=== PATIENT | male | born 1955 | race African-American/Black ===

== ENCOUNTER 2022-10-26 09:04 | Inpatient (IN) | payer MEDICAID, OTHER ==
[~2022-10-26] VITALS: Ht 177.8 cm; Wt 77.3 kg
[2022-10-26 10:21] LABS: Basophils # (auto) 0 10 ^3/uL (0-0.2); Basophils % (auto) 0.7 % (0.0-2.0); Eosinophils # (auto) 0.8 10 ^3/uL (0-0.8); Eosinophils % (auto) 10.5 % (0.0-7.0); Hemoglobin 9.4 g/dL (13.5-17.5); Lymphocytes # (auto) 2.3 10 ^3/uL (0.4-5.4); Lymphocytes % (auto) 31.6 % (10.0-50.0); Mean Corpuscular Hemoglobin 28.9 pg (28.0-32.0); Mean Corpuscular Hgb Conc. 32.4 g/dL (32.0-36.0); Mean Corpuscular Volume 89.3 fL (80.0-100.0); Monocytes # (auto) 0.6 10 ^3/uL (0-1.3); Monocytes % (auto) 8.8 % (0.0-12.0); Neutrophils # (auto) 3.5 10 ^3/uL (1.6-8.6); Neutrophils % (auto) 48.4 % (37.0-80.0); Nucleated Red Blood Cells % 0.1 %; Red Blood Cells 3.24 10^6/uL (4.5-5.90); Red Cell Distribution Width 16.6 % (11.8-14.3); White Blood Cell 7.3 10^3/uL (4.4-10.8)
[2022-10-26 10:29] LABS: Albumin 3.5 g/dL (3.4-5.0); Calcium 8.6 mg/dL (8.5-10.1); Potassium 4.7 mmol/L (3.5-5.1)
[2022-10-26 10:34] LABS: BUN/Creatinine Ratio 6.7 (10.0-20.0); Bilirubin, Total 0.4 mg/dL (0.2-1.0); Total Protein 7.4 g/dL (6.4-8.2)
[2022-10-26 11:39] LABS: INR 1.05 (0.9-1.15); Partial Thromboplastin Time 31.9 SEC (24.5-34.5)
[2022-10-26 13:07] VITALS: PULSE 63; RESP 18; O2SAT 97
[2022-10-26] MEDS ORDERED: ALBUMIN 25% 100 ML IV PRN ×2 (16:30→19:00)
[2022-10-26] MEDS: SODIUM CHL 0.9% 1000 ML BAG XX ONE ×2 (18:08→22:45)
[2022-10-26 19:30] VITALS: PULSE 81; RESP 15; O2SAT 97
[2022-10-26] MEDS ORDERED: ACETAMINOPHEN 325 MG TAB PO PRN (20:00)
[2022-10-26] MEDS ORDERED: EPOETIN ALFA-EPBX 10,000 UNIT/1ML VIAL SC ONE (21:00)
[2022-10-26 21:11] LABS: Urine Bacteria FEW /hpf (None Seen); Urine Blood TRACE /uL (Negative); Urine Clarity Clear (Clear); Urine Color Colorless (Yellow); Urine Mucus FEW (None Seen); Urine Protein, UAD 1+ (Negative); Urine Specific Gravity 1.008 (1.001-1.035); Urine Urobilinogen Normal (Negative); Urine WBC 21 /hpf (0 - 3)
[2022-10-26] MEDS: HEPARIN SODIUM (PORCINE) 5000 UNITS/ML 1ML VIAL SC SCH (22:18)
[2022-10-26] MEDS: ALBUMIN 25% 100 ML IV PRN ×2 (22:49→22:53)
[2022-10-26 23:58] VITALS: PULSE 98; RESP 18; O2SAT 96
[2022-10-27] VITALS (8 sets, daily range): BP systolic 124–180; BP diastolic 64–78; PULSE 71–98; RESP 16–18; TEMP 97.9–99.5; O2SAT 96–99
[2022-10-27] MEDS ORDERED: LOSA100T58 PO (00:25)
[2022-10-27] MEDS ORDERED: FURO40TA4 PO (00:25)
[2022-10-27] MEDS ORDERED: NIFE1TAB31 PO (00:25)
[2022-10-27] MEDS ORDERED: ASPI1TAB20 PO (00:25)
[2022-10-27] MEDS ORDERED: METO-289 PO (00:25)
[2022-10-27] MEDS ORDERED: ALLO300T2 PO (00:25)
[2022-10-27 06:50] LABS: Basophils # (auto) 0.1 10 ^3/uL (0-0.2); Basophils % (auto) 0.5 % (0.0-2.0); Eosinophils # (auto) 0.4 10 ^3/uL (0-0.8); Hematocrit 27.9 % (41.0-53.0); Lymphocytes # (auto) 1.6 10 ^3/uL (0.4-5.4); Lymphocytes % (auto) 13.7 % (10.0-50.0); Mean Corpuscular Hemoglobin 28.7 pg (28.0-32.0); Mean Corpuscular Hgb Conc. 32.3 g/dL (32.0-36.0); Mean Corpuscular Volume 88.9 fL (80.0-100.0); Monocytes # (auto) 0.7 10 ^3/uL (0-1.3); Neutrophils # (auto) 9.1 10 ^3/uL (1.6-8.6); Neutrophils % (auto) 76.8 % (37.0-80.0); Nucleated Red Blood Cells % 0.1 %; Red Blood Cells 3.14 10^6/uL (4.5-5.90); Red Cell Distribution Width 16.3 % (11.8-14.3); White Blood Cell 11.8 10^3/uL (4.4-10.8)
[2022-10-27] MEDS ORDERED: SODIUM CHL 0.9% 1000 ML BAG XX ONE (07:00)
[2022-10-27 07:10] LABS: Albumin 3.7 g/dL (3.4-5.0); Calcium 8.9 mg/dL (8.5-10.1); Potassium 4.6 mmol/L (3.5-5.1)
[2022-10-27 07:15] LABS: % Iron Saturation 20.8 % (20-55); BUN/Creatinine Ratio 5.3 (10.0-20.0); Bilirubin, Total 0.6 mg/dL (0.2-1.0); Phosphorus 2.4 mg/dL (2.5-4.90); Total Protein 7.2 g/dL (6.4-8.2)
[2022-10-27] MEDS ORDERED: SEVELAMER 800 MG TAB PO SCH (08:00)
[2022-10-27] MEDS: SODIUM FERR GLUC 62.5MG/5ML 125 MG in SODIUM CHL 0.9% 100 ML IV SCH (14:42)
[2022-10-27] MEDS: LOSARTAN POTASSIUM 50 MG TAB PO SCH (14:43)
[2022-10-27] MEDS: HEPARIN SODIUM (PORCINE) 5000 UNITS/ML 1ML VIAL SC SCH ×2 (14:51→22:03)
[2022-10-27 19:23] LABS: Cholesterol 160 mg/dL (< 200); Triglycerides 70 mg/dL (< 150)
[2022-10-27 19:26] LABS: HDL Cholesterol 58 mg/dL (40-59); LDL Cholesterol 83 mg/dL (< 100)
[2022-10-27] MEDS ORDERED: EPOETIN ALFA-EPBX 10,000 UNIT/1ML VIAL SC ONE (21:00)
[2022-10-27] MEDS: METOPROLOL TARTRATE 50 MG TAB PO SCH (22:00)
[2022-10-28] VITALS (7 sets, daily range): BP systolic 113–144; BP diastolic 63–84; PULSE 58–70; RESP 16–18; TEMP 98.1–98.7; O2SAT 91–99
[2022-10-28 05:59] LABS: Basophils # (auto) 0 10 ^3/uL (0-0.2); Basophils % (auto) 0.4 % (0.0-2.0); Eosinophils # (auto) 0.8 10 ^3/uL (0-0.8); Hematocrit 30.4 % (41.0-53.0); Hemoglobin 9.9 g/dL (13.5-17.5); Lymphocytes # (auto) 2.8 10 ^3/uL (0.4-5.4); Lymphocytes % (auto) 35.9 % (10.0-50.0); Mean Corpuscular Hemoglobin 28.9 pg (28.0-32.0); Mean Corpuscular Hgb Conc. 32.7 g/dL (32.0-36.0); Mean Corpuscular Volume 88.4 fL (80.0-100.0); Monocytes # (auto) 0.8 10 ^3/uL (0-1.3); Monocytes % (auto) 9.6 % (0.0-12.0); Neutrophils # (auto) 3.5 10 ^3/uL (1.6-8.6); Neutrophils % (auto) 44.1 % (37.0-80.0); Red Blood Cells 3.44 10^6/uL (4.5-5.90); Red Cell Distribution Width 16.2 % (11.8-14.3); White Blood Cell 7.9 10^3/uL (4.4-10.8)
[2022-10-28 06:07] LABS: Potassium 4.4 mmol/L (3.5-5.1)
[2022-10-28 06:11] LABS: BUN/Creatinine Ratio 6.1 (10.0-20.0); Calcium 8.9 mg/dL (8.5-10.1)
[2022-10-28 07:44] LABS: Platelet Estimate Decreased
[2022-10-28] MEDS: cefTRIAXone 1GM/50ML D5W 50 ML IV SCH (09:45)
[2022-10-28] MEDS: ASPirin-EC 81 mg tab PO SCH (09:45)
[2022-10-28] MEDS: LOSARTAN POTASSIUM 50 MG TAB PO SCH (09:46)
[2022-10-28] MEDS: METOPROLOL TARTRATE 50 MG TAB PO SCH ×2 (09:47→21:59)
[2022-10-28] MEDS: HEPARIN SODIUM (PORCINE) 5000 UNITS/ML 1ML VIAL SC SCH ×2 (10:02→21:59)
[2022-10-28] MEDS: NIFEdipine ER 30 MG TAB PO SCH (10:02)
[2022-10-28] MEDS: SODIUM FERR GLUC 62.5MG/5ML 125 MG in SODIUM CHL 0.9% 100 ML IV SCH (12:00)
[2022-10-28 12:33] LABS: Hepatitis A Ab IgM Negative
[2022-10-28 12:34] LABS: Hepatitis B Core IgM Negative; Hepatitis B Surface Antigen Negative (Negative)
[2022-10-28 12:35] LABS: Hepatitis C Antibody Negative (Negative)
[2022-10-28] MEDS: FUROSEMIDE 40 MG TAB PO SCH ×2 (15:23→21:51)
[2022-10-28] MEDS: ATORVASTATIN 20 MG TAB PO SCH (21:51)
[2022-10-29] VITALS (7 sets, daily range): BP systolic 108–138; BP diastolic 61–73; PULSE 70–78; RESP 15–18; TEMP 97.6–98.5; O2SAT 95–99
[2022-10-29] MEDS: FUROSEMIDE 40 MG TAB PO SCH ×3 (05:56→21:15)
[2022-10-29 06:07] LABS: PSA Free 4.86 ng/mL; Prostate Specific Antigen 23.9 ng/mL (0.0-4.0)
[2022-10-29 06:34] LABS: Basophils # (auto) 0 10 ^3/uL (0-0.2); Basophils % (auto) 0.4 % (0.0-2.0); Eosinophils % (auto) 12.6 % (0.0-7.0); Hematocrit 31.1 % (41.0-53.0); Hemoglobin 10.1 g/dL (13.5-17.5); Lymphocytes # (auto) 2.4 10 ^3/uL (0.4-5.4); Lymphocytes % (auto) 29.7 % (10.0-50.0); Mean Corpuscular Hemoglobin 28.9 pg (28.0-32.0); Mean Corpuscular Hgb Conc. 32.7 g/dL (32.0-36.0); Mean Corpuscular Volume 88.5 fL (80.0-100.0); Monocytes # (auto) 0.8 10 ^3/uL (0-1.3); Monocytes % (auto) 9.4 % (0.0-12.0); Neutrophils # (auto) 3.9 10 ^3/uL (1.6-8.6); Neutrophils % (auto) 47.9 % (37.0-80.0); Nucleated Red Blood Cells % 0.1 %; Red Blood Cells 3.51 10^6/uL (4.5-5.90); Red Cell Distribution Width 16.2 % (11.8-14.3); White Blood Cell 8.2 10^3/uL (4.4-10.8)
[2022-10-29 06:49] LABS: Calcium 9.2 mg/dL (8.5-10.1); Potassium 4.9 mmol/L (3.5-5.1)
[2022-10-29 06:51] LABS: BUN/Creatinine Ratio 6.3 (10.0-20.0)
[2022-10-29] MEDS ORDERED: SODIUM CHL 0.9% 1000 ML BAG XX ONE (07:00)
[2022-10-29] MEDS: HEPARIN SODIUM (PORCINE) 5000 UNITS/ML 1ML VIAL SC SCH (10:00)
[2022-10-29] MEDS: NIFEdipine ER 30 MG TAB PO SCH (11:13)
[2022-10-29] MEDS: cefTRIAXone 1GM/50ML D5W 50 ML IV SCH (11:13)
[2022-10-29] MEDS: ASPirin-EC 81 mg tab PO SCH (11:14)
[2022-10-29] MEDS: METOPROLOL TARTRATE 50 MG TAB PO SCH ×2 (11:14→21:15)
[2022-10-29] MEDS: SODIUM FERR GLUC 62.5MG/5ML 125 MG in SODIUM CHL 0.9% 100 ML IV SCH (12:41)
[2022-10-29] MEDS ORDERED: EPOETIN ALFA-EPBX 10,000 UNIT/1ML VIAL SC ONE (21:00)
[2022-10-29] MEDS: ATORVASTATIN 20 MG TAB PO SCH (21:15)
[2022-10-29 22:29] LABS: Potassium 4.2 mmol/L (3.5-5.1)
[2022-10-30] VITALS (7 sets, daily range): BP systolic 129–167; BP diastolic 49–81; PULSE 51–72; RESP 17–18; TEMP 36.6; O2SAT 95–100
[2022-10-30] MEDS: FUROSEMIDE 40 MG TAB PO SCH ×3 (05:53→22:17)
[2022-10-30 06:27] LABS: Basophils # (auto) 0.1 10 ^3/uL (0-0.2); Basophils % (auto) 0.6 % (0.0-2.0); Eosinophils # (auto) 1.1 10 ^3/uL (0-0.8); Eosinophils % (auto) 11.9 % (0.0-7.0); Hematocrit 30.6 % (41.0-53.0); Hemoglobin 9.9 g/dL (13.5-17.5); Lymphocytes # (auto) 2.2 10 ^3/uL (0.4-5.4); Lymphocytes % (auto) 23.7 % (10.0-50.0); Mean Corpuscular Hemoglobin 28.3 pg (28.0-32.0); Mean Corpuscular Hgb Conc. 32.2 g/dL (32.0-36.0); Mean Corpuscular Volume 88.1 fL (80.0-100.0); Monocytes # (auto) 0.8 10 ^3/uL (0-1.3); Neutrophils # (auto) 5.1 10 ^3/uL (1.6-8.6); Neutrophils % (auto) 54.8 % (37.0-80.0); Nucleated Red Blood Cells % 0.1 %; Red Blood Cells 3.48 10^6/uL (4.5-5.90); White Blood Cell 9.4 10^3/uL (4.4-10.8)
[2022-10-30 06:44] LABS: Potassium 4.6 mmol/L (3.5-5.1)
[2022-10-30 06:47] LABS: BUN/Creatinine Ratio 6.2 (10.0-20.0)
[2022-10-30] MEDS: cefTRIAXone 1GM/50ML D5W 50 ML IV SCH (09:25)
[2022-10-30] MEDS: NIFEdipine ER 30 MG TAB PO SCH (09:26)
[2022-10-30] MEDS: METOPROLOL TARTRATE 50 MG TAB PO SCH ×2 (09:26→22:17)
[2022-10-30] MEDS: LOSARTAN POTASSIUM 50 MG TAB PO SCH (09:27)
[2022-10-30 10:42] LABS: Potassium 4.7 mmol/L (3.5-5.1)
[2022-10-30] MEDS: SODIUM FERR GLUC 62.5MG/5ML 125 MG in SODIUM CHL 0.9% 100 ML IV SCH (12:00)
[2022-10-30] MEDS ORDERED: MEROPENEM 1GM IVPB 100 ML IV SCH (14:00)
[2022-10-30] MEDS: ERTAPENEM SOD INJ 0.5 GM in SODIUM CHL 0.9% 50 ML IV SCH (14:37)
[2022-10-30] MEDS: ATORVASTATIN 20 MG TAB PO SCH (22:18)
[2022-10-30 22:29] LABS: Potassium 4.6 mmol/L (3.5-5.1)
[2022-10-31 05:00] VITALS: BP 152/75; PULSE 79; RESP 18; TEMP 98; O2SAT 100
[2022-10-31] MEDS: FUROSEMIDE 40 MG TAB PO SCH ×3 (06:48→21:53)
[2022-10-31 09:00] VITALS: BP 167/68; PULSE 65; RESP 21; TEMP 97.5; O2SAT 96
[2022-10-31] MEDS: ERTAPENEM SOD INJ 0.5 GM in SODIUM CHL 0.9% 50 ML IV SCH (10:05)
[2022-10-31] MEDS: METOPROLOL TARTRATE 50 MG TAB PO SCH ×2 (10:05→21:54)
[2022-10-31] MEDS: NIFEdipine ER 30 MG TAB PO SCH (10:05)
[2022-10-31] MEDS: LOSARTAN POTASSIUM 50 MG TAB PO SCH (10:06)
[2022-10-31 10:41] LABS: Potassium 4.7 mmol/L (3.5-5.1)
[2022-10-31] MEDS: hydrALAZINE HCL 20 MG/ML VL IV PRN (12:36)
[2022-10-31] MEDS: SODIUM FERR GLUC 62.5MG/5ML 125 MG in SODIUM CHL 0.9% 100 ML IV SCH (12:36)
[2022-10-31 12:50] VITALS: BP 167/67; PULSE 61; RESP 17; TEMP 97.2; O2SAT 97
[2022-10-31 17:00] VITALS: BP 136/61; PULSE 78; RESP 18; TEMP 97.7; O2SAT 96
[2022-10-31] MEDS: ATORVASTATIN 20 MG TAB PO SCH (21:53)
[2022-10-31 22:00] VITALS: BP 138/62; PULSE 78; RESP 17; TEMP 98.4; O2SAT 95
[2022-11-01 05:00] VITALS: BP 167/74; PULSE 77; RESP 18; TEMP 97.2; O2SAT 97
[2022-11-01] MEDS: hydrALAZINE HCL 20 MG/ML VL IV PRN (05:48)
[2022-11-01 05:49] VITALS: BP 151/72; PULSE 71
[2022-11-01] MEDS: FUROSEMIDE 40 MG TAB PO SCH ×3 (05:49→21:53)
[2022-11-01 05:55] LABS: INR 1.07 (0.9-1.15); Partial Thromboplastin Time 34.3 SEC (24.5-34.5); Prothrombin Time 11.2 sec (9.3-11.8)
[2022-11-01 07:43] LABS: Calcium 9.1 mg/dL (8.5-10.1); Potassium 5.4 mmol/L (3.5-5.1)
[2022-11-01 07:46] LABS: BUN/Creatinine Ratio 7.2 (10.0-20.0)
[2022-11-01 07:50] VITALS: BP 123/56; PULSE 70; RESP 18; TEMP 97.7; O2SAT 97
[2022-11-01 07:57] LABS: Basophils # (auto) 0.1 10 ^3/uL (0-0.2); Basophils % (auto) 0.6 % (0.0-2.0); Eosinophils % (auto) 10.4 % (0.0-7.0); Hematocrit 32.4 % (41.0-53.0); Hemoglobin 10.6 g/dL (13.5-17.5); Lymphocytes # (auto) 2.2 10 ^3/uL (0.4-5.4); Lymphocytes % (auto) 22.5 % (10.0-50.0); Mean Corpuscular Hgb Conc. 32.7 g/dL (32.0-36.0); Mean Corpuscular Volume 88.7 fL (80.0-100.0); Monocytes # (auto) 1.1 10 ^3/uL (0-1.3); Monocytes % (auto) 11.2 % (0.0-12.0); Neutrophils # (auto) 5.4 10 ^3/uL (1.6-8.6); Neutrophils % (auto) 55.3 % (37.0-80.0); Nucleated Red Blood Cells % 0.1 %; Red Blood Cells 3.65 10^6/uL (4.5-5.90); Red Cell Distribution Width 16.2 % (11.8-14.3); White Blood Cell 9.7 10^3/uL (4.4-10.8)
[2022-11-01 08:45] VITALS: BP 123/56; PULSE 70; RESP 18; TEMP 97.7; O2SAT 97
[2022-11-01] MEDS: METOPROLOL TARTRATE 50 MG TAB PO SCH ×2 (10:00→21:52)
[2022-11-01] MEDS: LOSARTAN POTASSIUM 50 MG TAB PO SCH (10:00)
[2022-11-01] MEDS: NIFEdipine ER 30 MG TAB PO SCH (10:00)
[2022-11-01] MEDS: ERTAPENEM SOD INJ 0.5 GM in SODIUM CHL 0.9% 50 ML IV SCH (10:21)
[2022-11-01] MEDS ORDERED: SODIUM CHL 0.9% 1000 ML BAG XX ONE (10:45)
[2022-11-01 13:18] VITALS: BP 157/71; PULSE 92; RESP 20; O2SAT 93
[2022-11-01 13:35] LABS: Potassium 3.9 mmol/L (3.5-5.1)
[2022-11-01] MEDS ORDERED: MIDAZOLAM HCL 2MG/2ML 2ml VIAL (1mg/ml) ONE (16:01)
[2022-11-01] MEDS ORDERED: PROPOFOL 10 MG/ML 20 ML IV ONE ×2 (16:01→17:05)
[2022-11-01] MEDS ORDERED: GLYCOPYRROLATE 0.2 MG/ML 1ML VIAL ONE (16:01)
[2022-11-01] MEDS ORDERED: KETAMINE HCL 10 ML ONE (16:01)
[2022-11-01] MEDS ORDERED: ONDANSETRON HCL 4 MG/2 ML VIAL ONE (16:01)
[2022-11-01] MEDS ORDERED: LIDOCAINE 2% (LOCAL ANESTH.) PF 5ml SDV ONE (16:01)
[2022-11-01] MEDS ORDERED: fentaNYL CITRATE 100 MCG/2 ML VL ONE (16:54)
[2022-11-01] MEDS ORDERED: ONDANSETRON HCL 4 MG/2 ML VIAL IV PRN (17:45)
[2022-11-01] MEDS ORDERED: HYDROmorphone HCL 2 MG/ML VL/or syr IV PRN (17:45)
[2022-11-01] MEDS ORDERED: EPOETIN ALFA-EPBX 10,000 UNIT/1ML VIAL SC ONE (21:00)
[2022-11-01] MEDS: ATORVASTATIN 20 MG TAB PO SCH (21:52)
[2022-11-01 22:05] VITALS: BP 98/53; PULSE 94; RESP 18; TEMP 98.7; O2SAT 100
[2022-11-01 22:36] LABS: Potassium 5.1 mmol/L (3.5-5.1)
[2022-11-02] VITALS (7 sets, daily range): BP systolic 94–109; BP diastolic 45–56; PULSE 72–80; RESP 16–22; TEMP 97.2–98.4; O2SAT 93–100
[2022-11-02] MEDS: FUROSEMIDE 40 MG TAB PO SCH ×3 (05:26→22:30)
[2022-11-02 08:08] LABS: Basophils # (auto) 0 10 ^3/uL (0-0.2); Basophils % (auto) 0.4 % (0.0-2.0); Eosinophils # (auto) 0.7 10 ^3/uL (0-0.8); Eosinophils % (auto) 5.7 % (0.0-7.0); Hematocrit 32.9 % (41.0-53.0); Hemoglobin 10.6 g/dL (13.5-17.5); Lymphocytes # (auto) 2.5 10 ^3/uL (0.4-5.4); Lymphocytes % (auto) 21.5 % (10.0-50.0); Mean Corpuscular Hgb Conc. 32.3 g/dL (32.0-36.0); Mean Corpuscular Volume 89.9 fL (80.0-100.0); Monocytes # (auto) 1.1 10 ^3/uL (0-1.3); Monocytes % (auto) 9.2 % (0.0-12.0); Neutrophils # (auto) 7.3 10 ^3/uL (1.6-8.6); Neutrophils % (auto) 63.2 % (37.0-80.0); Nucleated Red Blood Cells % 0.1 %; Red Blood Cells 3.66 10^6/uL (4.5-5.90); Red Cell Distribution Width 16.2 % (11.8-14.3); White Blood Cell 11.5 10^3/uL (4.4-10.8)
[2022-11-02 08:29] LABS: BUN/Creatinine Ratio 5.7 (10.0-20.0); Calcium 9.1 mg/dL (8.5-10.1); Potassium 5.4 mmol/L (3.5-5.1)
[2022-11-02] MEDS: NIFEdipine ER 30 MG TAB PO SCH (10:00)
[2022-11-02] MEDS: LOSARTAN POTASSIUM 50 MG TAB PO SCH (10:49)
[2022-11-02] MEDS: ERTAPENEM SOD INJ 0.5 GM in SODIUM CHL 0.9% 50 ML IV SCH (10:50)
[2022-11-02] MEDS: METOPROLOL TARTRATE 50 MG TAB PO SCH ×2 (10:50→22:30)
[2022-11-02] MEDS ORDERED: DEXTROSE (50%) 50ML SYRG IV ONE (11:30)
[2022-11-02] MEDS ORDERED: InsuLIN REG 1unit/0.01ml Soln (100units/ml) IV ONE (11:30)
[2022-11-02] MEDS: SODIUM ZIRCONIUM CYCL 10 GM PAK PO SCH ×2 (13:28→22:31)
[2022-11-02] MEDS: ATORVASTATIN 20 MG TAB PO SCH (22:30)
[2022-11-03 04:46] VITALS: BP 122/46; PULSE 70; RESP 18; TEMP 98.2; O2SAT 96
[2022-11-03] MEDS: FUROSEMIDE 40 MG TAB PO SCH ×3 (05:02→21:52)
[2022-11-03] MEDS ORDERED: SODIUM CHL 0.9% 1000 ML BAG XX ONE (07:00)
[2022-11-03] MEDS ORDERED: ALBUMIN 25% 100 ML IV ONE (07:30)
[2022-11-03 07:43] LABS: Basophils # (auto) 0.1 10 ^3/uL (0-0.2); Basophils % (auto) 1.5 % (0.0-2.0); Eosinophils # (auto) 0.1 10 ^3/uL (0-0.8); Eosinophils % (auto) 3.1 % (0.0-7.0); Hematocrit 32.9 % (41.0-53.0); Hemoglobin 10.6 g/dL (13.5-17.5); Lymphocytes # (auto) 1.9 10 ^3/uL (0.4-5.4); Lymphocytes % (auto) 43.3 % (10.0-50.0); Mean Corpuscular Hemoglobin 29.1 pg (28.0-32.0); Mean Corpuscular Hgb Conc. 32.1 g/dL (32.0-36.0); Mean Corpuscular Volume 90.6 fL (80.0-100.0); Monocytes # (auto) 0.1 10 ^3/uL (0-1.3); Monocytes % (auto) 1.4 % (0.0-12.0); Neutrophils # (auto) 2.2 10 ^3/uL (1.6-8.6); Neutrophils % (auto) 50.7 % (37.0-80.0); Nucleated Red Blood Cells % 0.1 %; Red Blood Cells 3.63 10^6/uL (4.5-5.90); White Blood Cell 4.3 10^3/uL (4.4-10.8)
[2022-11-03 07:59] LABS: BUN/Creatinine Ratio 6.6 (10.0-20.0); Calcium 8.7 mg/dL (8.5-10.1); Potassium 4.4 mmol/L (3.5-5.1)
[2022-11-03 08:15] VITALS: O2SAT 95
[2022-11-03 08:50] VITALS: BP 115/55; PULSE 70; RESP 21; TEMP 98; O2SAT 100
[2022-11-03] MEDS: METOPROLOL TARTRATE 50 MG TAB PO SCH ×2 (10:00→21:52)
[2022-11-03] MEDS: NIFEdipine ER 30 MG TAB PO SCH (10:00)
[2022-11-03] MEDS: SODIUM ZIRCONIUM CYCL 10 GM PAK PO SCH (11:16)
[2022-11-03] MEDS: ERTAPENEM SOD INJ 0.5 GM in SODIUM CHL 0.9% 50 ML IV SCH (11:27)
[2022-11-03 12:39] VITALS: BP 108/54; PULSE 98; RESP 21; TEMP 97.4; O2SAT 100
[2022-11-03 16:31] VITALS: BP 100/58; PULSE 95; RESP 21; TEMP 98; O2SAT 100
[2022-11-03] MEDS ORDERED: EPOETIN ALFA-EPBX 10,000 UNIT/1ML VIAL SC ONE (21:00)
[2022-11-03] MEDS: ATORVASTATIN 20 MG TAB PO SCH (21:51)
[2022-11-03 22:04] VITALS: BP 117/50; PULSE 89; RESP 20; TEMP 97.6; O2SAT 95
[2022-11-04] MEDS: FUROSEMIDE 40 MG TAB PO SCH ×3 (05:09→21:32)
[2022-11-04 06:59] LABS: Calcium 8.6 mg/dL (8.5-10.1); Potassium 5.2 mmol/L (3.5-5.1)
[2022-11-04 07:00] LABS: Basophils # (auto) 0.1 10 ^3/uL (0-0.2); Hemoglobin 9.5 g/dL (13.5-17.5); Monocytes % (auto) 11.8 % (0.0-12.0); Nucleated Red Blood Cells % 0.1 %
[2022-11-04 07:03] LABS: Basophils % (auto) 0.5 % (0.0-2.0); Eosinophils # (auto) 0.9 10 ^3/uL (0-0.8); Eosinophils % (auto) 9.7 % (0.0-7.0); Lymphocytes # (auto) 2.5 10 ^3/uL (0.4-5.4); Lymphocytes % (auto) 26.1 % (10.0-50.0); Mean Corpuscular Hemoglobin 29.2 pg (28.0-32.0); Mean Corpuscular Hgb Conc. 32.8 g/dL (32.0-36.0); Mean Corpuscular Volume 89.1 fL (80.0-100.0); Monocytes # (auto) 1.1 10 ^3/uL (0-1.3); Neutrophils # (auto) 5.1 10 ^3/uL (1.6-8.6); Neutrophils % (auto) 51.9 % (37.0-80.0); Red Blood Cells 3.25 10^6/uL (4.5-5.90); Red Cell Distribution Width 16.4 % (11.8-14.3); White Blood Cell 9.7 10^3/uL (4.4-10.8)
[2022-11-04 08:15] VITALS: O2SAT 95
[2022-11-04 08:42] VITALS: BP 123/60; PULSE 72; RESP 16; TEMP 98.4; O2SAT 94
[2022-11-04] MEDS: NIFEdipine ER 30 MG TAB PO SCH (08:50)
[2022-11-04] MEDS: METOPROLOL TARTRATE 50 MG TAB PO SCH ×2 (08:51→21:33)
[2022-11-04] MEDS: LOSARTAN POTASSIUM 50 MG TAB PO SCH (08:51)
[2022-11-04] MEDS: ERTAPENEM SOD INJ 0.5 GM in SODIUM CHL 0.9% 50 ML IV SCH (08:52)
[2022-11-04 09:12] LABS: Platelet Estimate Decreased
[2022-11-04] MEDS ORDERED: SODIUM ZIRCONIUM CYCL 10 GM PAK PO ONE (10:15)
[2022-11-04 12:53] VITALS: BP 120/46; PULSE 62; RESP 15; TEMP 98; O2SAT 95
[2022-11-04 16:37] VITALS: BP 112/60; PULSE 72; RESP 15; TEMP 98.4; O2SAT 92
[2022-11-04] MEDS: ATORVASTATIN 20 MG TAB PO SCH (21:32)
[2022-11-04 22:00] VITALS: BP 107/53; PULSE 74; RESP 16; TEMP 97.8; O2SAT 96
[2022-11-05 04:42] VITALS: BP_SYST 120; BP_SYST 134; BP_DIAS 53; BP_DIAS 82; PULSE 77; PULSE 82; RESP 15; RESP 18; TEMP 97.6; TEMP 97.8; O2SAT 100; O2SAT 97
[2022-11-05 05:43] LABS: Basophils # (auto) 0 10 ^3/uL (0-0.2); Basophils % (auto) 0.6 % (0.0-2.0); Eosinophils # (auto) 1.1 10 ^3/uL (0-0.8); Eosinophils % (auto) 11.9 % (0.0-7.0); Hematocrit 29.6 % (41.0-53.0); Hemoglobin 9.7 g/dL (13.5-17.5); Lymphocytes # (auto) 2.6 10 ^3/uL (0.4-5.4); Lymphocytes % (auto) 29.7 % (10.0-50.0); Mean Corpuscular Hemoglobin 28.9 pg (28.0-32.0); Mean Corpuscular Hgb Conc. 32.7 g/dL (32.0-36.0); Mean Corpuscular Volume 88.3 fL (80.0-100.0); Monocytes # (auto) 0.9 10 ^3/uL (0-1.3); Monocytes % (auto) 10.6 % (0.0-12.0); Neutrophils # (auto) 4.2 10 ^3/uL (1.6-8.6); Neutrophils % (auto) 47.2 % (37.0-80.0); Red Blood Cells 3.36 10^6/uL (4.5-5.90); Red Cell Distribution Width 16.4 % (11.8-14.3); White Blood Cell 8.9 10^3/uL (4.4-10.8)
[2022-11-05] MEDS: FUROSEMIDE 40 MG TAB PO SCH ×3 (06:00→22:07)
[2022-11-05 06:06] LABS: BUN/Creatinine Ratio 6.9 (10.0-20.0); Calcium 8.9 mg/dL (8.5-10.1); Potassium 4.7 mmol/L (3.5-5.1)
[2022-11-05] MEDS ORDERED: SODIUM CHL 0.9% 1000 ML BAG XX ONE (07:00)
[2022-11-05 09:00] VITALS: BP 116/60; PULSE 75; RESP 17; O2SAT 94
[2022-11-05] MEDS: NIFEdipine ER 30 MG TAB PO SCH (10:00)
[2022-11-05] MEDS: METOPROLOL TARTRATE 50 MG TAB PO SCH ×2 (10:00→22:00)
[2022-11-05] MEDS: ERTAPENEM SOD INJ 0.5 GM in SODIUM CHL 0.9% 50 ML IV SCH (12:48)
[2022-11-05 13:00] VITALS: BP 135/59; PULSE 88; RESP 17
[2022-11-05 17:00] VITALS: BP 109/50; PULSE 85; RESP 17; TEMP 97.6; O2SAT 99
[2022-11-05 22:00] VITALS: BP 111/65; PULSE 87; RESP 18; TEMP 98.1; O2SAT 95
[2022-11-05] MEDS: ATORVASTATIN 20 MG TAB PO SCH (22:07)
[2022-11-06] VITALS (7 sets, daily range): BP systolic 117–128; BP diastolic 45–96; PULSE 74–83; RESP 16–20; TEMP 97.2–98.5; O2SAT 95–96
[2022-11-06] MEDS: FUROSEMIDE 40 MG TAB PO SCH ×3 (06:06→22:33)
[2022-11-06 07:26] LABS: Basophils # (auto) 0 10 ^3/uL (0-0.2); Basophils % (auto) 0.5 % (0.0-2.0); Eosinophils # (auto) 1.1 10 ^3/uL (0-0.8); Hematocrit 31.8 % (41.0-53.0); Hemoglobin 10.1 g/dL (13.5-17.5); Lymphocytes # (auto) 2.8 10 ^3/uL (0.4-5.4); Lymphocytes % (auto) 27.9 % (10.0-50.0); Mean Corpuscular Hemoglobin 28.6 pg (28.0-32.0); Mean Corpuscular Hgb Conc. 31.8 g/dL (32.0-36.0); Mean Corpuscular Volume 89.9 fL (80.0-100.0); Monocytes # (auto) 1.1 10 ^3/uL (0-1.3); Monocytes % (auto) 11.3 % (0.0-12.0); Neutrophils # (auto) 4.9 10 ^3/uL (1.6-8.6); Neutrophils % (auto) 49.3 % (37.0-80.0); Nucleated Red Blood Cells % 0.1 %; Red Blood Cells 3.54 10^6/uL (4.5-5.90); Red Cell Distribution Width 16.5 % (11.8-14.3); White Blood Cell 9.9 10^3/uL (4.4-10.8)
[2022-11-06 07:45] LABS: Calcium 8.6 mg/dL (8.5-10.1); Potassium 4.5 mmol/L (3.5-5.1)
[2022-11-06 07:47] LABS: BUN/Creatinine Ratio 6.6 (10.0-20.0)
[2022-11-06] MEDS: METOPROLOL TARTRATE 50 MG TAB PO SCH ×2 (09:26→22:34)
[2022-11-06] MEDS: ERTAPENEM SOD INJ 0.5 GM in SODIUM CHL 0.9% 50 ML IV SCH (09:35)
[2022-11-06] MEDS: ATORVASTATIN 20 MG TAB PO SCH (22:33)
[2022-11-07] VITALS (7 sets, daily range): BP systolic 117–122; BP diastolic 47–77; PULSE 66–75; RESP 17–20; TEMP 97.8–98.2; O2SAT 94–99
[2022-11-07 05:39] LABS: Calcium 8.7 mg/dL (8.5-10.1); Potassium 4.6 mmol/L (3.5-5.1)
[2022-11-07 05:43] LABS: BUN/Creatinine Ratio 6.7 (10.0-20.0)
[2022-11-07 05:56] LABS: Basophils # (auto) 0 10 ^3/uL (0-0.2); Basophils % (auto) 0.5 % (0.0-2.0); Eosinophils # (auto) 1.2 10 ^3/uL (0-0.8); Eosinophils % (auto) 13.5 % (0.0-7.0); Hemoglobin 9.9 g/dL (13.5-17.5); Lymphocytes # (auto) 2.6 10 ^3/uL (0.4-5.4); Lymphocytes % (auto) 29.1 % (10.0-50.0); Mean Corpuscular Hemoglobin 29.4 pg (28.0-32.0); Mean Corpuscular Hgb Conc. 33.1 g/dL (32.0-36.0); Mean Corpuscular Volume 88.7 fL (80.0-100.0); Monocytes # (auto) 1.1 10 ^3/uL (0-1.3); Monocytes % (auto) 12.5 % (0.0-12.0); Neutrophils # (auto) 3.9 10 ^3/uL (1.6-8.6); Neutrophils % (auto) 44.4 % (37.0-80.0); Nucleated Red Blood Cells % 0.1 %; Red Blood Cells 3.38 10^6/uL (4.5-5.90); Red Cell Distribution Width 15.9 % (11.8-14.3); White Blood Cell 8.9 10^3/uL (4.4-10.8)
[2022-11-07] MEDS: FUROSEMIDE 40 MG TAB PO SCH ×3 (06:09→22:18)
[2022-11-07] MEDS: METOPROLOL TARTRATE 50 MG TAB PO SCH ×2 (09:14→22:18)
[2022-11-07] MEDS: ERTAPENEM SOD INJ 0.5 GM in SODIUM CHL 0.9% 50 ML IV SCH (09:14)
[2022-11-07] MEDS: ATORVASTATIN 20 MG TAB PO SCH (22:18)
[2022-11-08 05:00] VITALS: BP 119/68; PULSE 64; RESP 17; TEMP 97.8; O2SAT 98
[2022-11-08] MEDS: FUROSEMIDE 40 MG TAB PO SCH ×2 (05:54→14:00)
[2022-11-08 06:29] LABS: Basophils # (auto) 0.1 10 ^3/uL (0-0.2); Basophils % (auto) 0.6 % (0.0-2.0); Eosinophils # (auto) 1.1 10 ^3/uL (0-0.8); Eosinophils % (auto) 13.4 % (0.0-7.0); Hematocrit 30.9 % (41.0-53.0); Hemoglobin 10.1 g/dL (13.5-17.5); Lymphocytes # (auto) 2.3 10 ^3/uL (0.4-5.4); Lymphocytes % (auto) 27.9 % (10.0-50.0); Mean Corpuscular Hgb Conc. 32.8 g/dL (32.0-36.0); Mean Corpuscular Volume 88.5 fL (80.0-100.0); Monocytes # (auto) 0.9 10 ^3/uL (0-1.3); Neutrophils # (auto) 3.8 10 ^3/uL (1.6-8.6); Neutrophils % (auto) 47.1 % (37.0-80.0); Red Blood Cells 3.49 10^6/uL (4.5-5.90); Red Cell Distribution Width 16.1 % (11.8-14.3); White Blood Cell 8.1 10^3/uL (4.4-10.8)
[2022-11-08] MEDS ORDERED: SODIUM CHL 0.9% 1000 ML BAG XX ONE (07:00)
[2022-11-08 07:02] LABS: Potassium 4.9 mmol/L (3.5-5.1)
[2022-11-08 07:09] LABS: BUN/Creatinine Ratio 7.3 (10.0-20.0); Calcium 9.1 mg/dL (8.5-10.1)
[2022-11-08 08:38] VITALS: BP 126/67; PULSE 81; RESP 20
[2022-11-08] MEDS ORDERED: ATOR20TA50 PO (10:23)
[2022-11-08] MEDS: ERTAPENEM SOD INJ 0.5 GM in SODIUM CHL 0.9% 50 ML IV SCH (10:43)
[2022-11-08] MEDS: METOPROLOL TARTRATE 50 MG TAB PO SCH (10:43)
[2022-11-08] MEDS ORDERED: SEVELAMER 800 MG TAB PO SCH (12:00)
[2022-11-08 12:30] VITALS: BP 123/67; PULSE 104; RESP 18; TEMP 98.3; O2SAT 94
[2022-11-08] MEDS ORDERED: ASPI1TAB20 PO (13:41)
[2022-11-08] MEDS ORDERED: METO-289 PO (13:41)
[2022-11-08] MEDS ORDERED: FURO1TAB33 PO (13:41)
[2022-11-08] MEDS ORDERED: LOS25T PO (13:41)
[2022-11-08] MEDS ORDERED: NIFE1TAB31 PO (13:41)
[2022-11-08 16:38] VITALS: BP 111/52; PULSE 76; RESP 20; TEMP 98.1; O2SAT 97
[2022-11-08] MEDS ORDERED: EPOETIN ALFA-EPBX 10,000 UNIT/1ML VIAL SC ONE (21:00)
[2022-11-09] MEDS ORDERED: B-COMPLEX W/ C & FOLIC ACID(NEPHROVITE TAB) PO SCH (10:00)
== END 2022-11-08 17:28 | disposition home or self-care (01) | DRG 446 ==
LOC: ER 09:04 → OVERFLOW 20:00 → EDBD 20:00 → EAST 22:53
PROVIDERS: ADMIT Internal Medicine Pulmonary Disease; ATTEND Student in an Organized Health Care Education/Training Program
PROC: 5A1D70Z Performance of Urinary Filtration, Intermittent, Less than 6 Hours Per Day (ICD-10-PCS; 2022-10-26)
PROC: 5A1D70Z Performance of Urinary Filtration, Intermittent, Less than 6 Hours Per Day (ICD-10-PCS; 2022-10-27)
PROC: 5A1D70Z Performance of Urinary Filtration, Intermittent, Less than 6 Hours Per Day (ICD-10-PCS; 2022-10-29)
PROC: 0T9B80Z Drainage of Bladder with Drainage Device, Via Natural or Artificial Opening Endoscopic (ICD-10-PCS; 2022-11-01)
PROC: 0VB08ZX Excision of Prostate, Via Natural or Artificial Opening Endoscopic, Diagnostic (ICD-10-PCS; 2022-11-01)
PROC: 05H933Z Insertion of Infusion Device into Right Brachial Vein, Percutaneous Approach (ICD-10-PCS; 2022-11-01)
PROC: 5A1D70Z Performance of Urinary Filtration, Intermittent, Less than 6 Hours Per Day (ICD-10-PCS; 2022-11-01)
PROC: 0T2BX0Z Change Drainage Device in Bladder, External Approach (ICD-10-PCS; 2022-11-01)
PROC: 0TND8ZZ Release Urethra, Via Natural or Artificial Opening Endoscopic (ICD-10-PCS; 2022-11-01)
PROC: B54MZZA Ultrasonography of Right Upper Extremity Veins, Guidance (ICD-10-PCS; principal; 2022-11-01 16:21)
PROC: 5A1D70Z Performance of Urinary Filtration, Intermittent, Less than 6 Hours Per Day (ICD-10-PCS; 2022-11-03)
PROC: 5A1D70Z Performance of Urinary Filtration, Intermittent, Less than 6 Hours Per Day (ICD-10-PCS; 2022-11-05)
DX: N35.919 Unspecified urethral stricture, male, unspecified site (principal); I12.0 Hypertensive chronic kidney disease with stage 5 chronic kidney disease or end stage renal disease; N18.6 End stage renal disease; D63.1 Anemia in chronic kidney disease; N13.8 Other obstructive and reflux uropathy; E83.39 Other disorders of phosphorus metabolism; E87.5 Hyperkalemia; N40.1 Benign prostatic hyperplasia with lower urinary tract symptoms; R97.20 Elevated prostate specific antigen [PSA]; N39.0 Urinary tract infection, site not specified; Z93.59 Other cystostomy status; Z85.46 Personal history of malignant neoplasm of prostate; Z99.2 Dependence on renal dialysis; Z92.3 Personal history of irradiation; I25.2 Old myocardial infarction; Z80.3 Family history of malignant neoplasm of breast; Z80.42 Family history of malignant neoplasm of prostate
CPT/HCPCS: 36415; 71045; 74176; 80048; 80051; 80053; 80061; 80074; 81001; 82306; 82728; 83036; 83540; 83550; 83735; 83970; 84100; 84154; 84443; 84484; 84550; 85025; 85610; 85730; 86850; 86900; 86901; 87086; 87088; 87186; 87340; 90935; 93005; 93306; 96374; G0378; J0696; J1335; J1642; J2001; J2250; J2405; J2704; P9047

== ENCOUNTER 2023-06-06 07:34 | Day surgery (SDC) | payer MEDICAID ==
[2023-06-02 13:06] LABS: Basophils # (auto) 0 10 ^3/uL (0-0.2); Basophils % (auto) 0.4 % (0.0-2.0); Eosinophils # (auto) 1.2 10 ^3/uL (0-0.8); Eosinophils % (auto) 15.1 % (0.0-7.0); Hematocrit 33.9 % (41.0-53.0); Hemoglobin 10.9 g/dL (13.5-17.5); Lymphocytes # (auto) 2.4 10 ^3/uL (0.4-5.4); Lymphocytes % (auto) 31.4 % (10.0-50.0); Mean Corpuscular Hemoglobin 27.5 pg (28.0-32.0); Mean Corpuscular Hgb Conc. 32.1 g/dL (32.0-36.0); Mean Corpuscular Volume 85.6 fL (80.0-100.0); Monocytes # (auto) 0.7 10 ^3/uL (0-1.3); Monocytes % (auto) 8.6 % (0.0-12.0); Neutrophils # (auto) 3.4 10 ^3/uL (1.6-8.6); Neutrophils % (auto) 44.5 % (37.0-80.0); Nucleated Red Blood Cells % 0.1 %; Red Blood Cells 3.96 10^6/uL (4.5-5.90); Red Cell Distribution Width 15.4 % (11.8-14.3); White Blood Cell 7.7 10^3/uL (4.4-10.8)
[2023-06-02 13:19] LABS: INR 1.12 (0.9-1.15); Partial Thromboplastin Time 29.3 SEC (24.5-34.5); Prothrombin Time 11.7 sec (9.3-11.8)
[2023-06-02 13:39] LABS: Alanine Aminotransferase 12 U/L (7-40); Albumin 4.1 g/dL (3.2-4.8); Alkaline Phosphatase 97 U/L (46-116); Anion Gap 10 (5-15); Aspartate Aminotransferase 11 U/L (13-40); BUN/Creatinine Ratio 3.8 (10.0-20.0); Bilirubin, Total 0.4 mg/dL (0.2-1.0); Blood Urea Nitrogen 29 mg/dL (9-23); Calcium 9.2 mg/dL (8.5-10.1); Carbon Dioxide 27 mmol/L (20-30); Chloride 100 mmol/L (98-107); Glucose 84 mg/dL (74-106); Potassium 4.8 mmol/L (3.5-5.1); Sodium 137 mmol/L (136-145)
[~2023-06-06] VITALS: Ht 177.8 cm; Wt 82.6 kg
[~2023-06-06 07:34] MED LIST: ASPI1TAB20 PO; ATOR20TA50 PO; FURO40TA4 PO; LOS25T PO; LOSA100T58 PO; METO-289 PO
[2023-06-06] MEDS ORDERED: ceFAZolin 2 GM/D5W50ml 50 ML IV ONE (08:15)
[2023-06-06 09:23] LABS: Urine Bacteria MOD /hpf (None Seen); Urine Blood TRACE /uL (Negative); Urine Clarity HAZY (Clear); Urine Color Colorless (Yellow); Urine Protein, UAD 1+ (Negative); Urine Specific Gravity 1.008 (1.001-1.035); Urine Urobilinogen Normal (Negative); Urine WBC 68 /hpf (0 - 3); Urine WBC Clumps PRESENT /hpf (None Seen)
[2023-06-06] MEDS ORDERED: MEPERIDINE HCL (50 MG/ML) 1 ML VIAL ONE (09:55)
[2023-06-06] MEDS ORDERED: MIDAZOLAM HCL 2MG/2ML 2ml VIAL (1mg/ml) ONE (09:55)
[2023-06-06] MEDS ORDERED: fentaNYL CITRATE 100 MCG/2 ML VL ONE ×2 (09:55→10:28)
[2023-06-06] MEDS ORDERED: PROPOFOL 10 MG/ML 20 ML IV ONE (10:24)
[2023-06-06] MEDS ORDERED: DexAMETHasone SOD PHOS 10MG/1ML VIAL INJ ONE (10:24)
[2023-06-06] MEDS ORDERED: fentaNYL CITRATE 100 MCG/2 ML VL IV PRN (10:45)
[2023-06-06] MEDS ORDERED: ePHEDrine SULFATE 50 MG/ML AMP IV PRN (10:45)
[2023-06-06] MEDS ORDERED: MORPHINE SULFATE 4 MG/ML SYR/VIAL IV PRN (10:45)
[2023-06-06] MEDS ORDERED: hydrALAZINE HCL 20 MG/ML VL IV PRN (10:45)
[2023-06-06] MEDS ORDERED: MIDAZOLAM HCL 2MG/2ML 2ml VIAL (1mg/ml) IV PRN (10:45)
[2023-06-06] MEDS ORDERED: LABETALOL HCL 5 MG/ML 4ML SYRINGE IV PRN (10:45)
[2023-06-06] MEDS ORDERED: HYDROmorphone HCL 2 MG/ML VL/or syr IV PRN (10:45)
[2023-06-06] MEDS ORDERED: ONDANSETRON HCL 4 MG/2 ML VIAL IV PRN (10:45)
[2023-06-06] MEDS: BUPIVACAINE 0.5% P/F INJ 10 ML VIAL ONE (10:48)
[2023-06-06] MEDS ORDERED: SUCCINYLCHOLINE CHLORIDE 20 MG/ML 10ML VIAL IV ONE (10:56)
[2023-06-06] MEDS: HEPARIN SODIUM (PORCINE) 5000 UNITS/ML 1ML VIAL ONE (10:57)
[2023-06-06] MEDS ORDERED: ONDANSETRON HCL 4 MG/2 ML VIAL IV ONE (11:00)
[2023-06-06] MEDS ORDERED: PHENYLEPHRINE HCL 10 MG/ML VL IV ONE (11:00)
[2023-06-06 11:54] VITALS: O2SAT 100
[2023-06-06 11:55] VITALS: TEMP 97.3
[2023-06-06 12:30] VITALS: BP 100/42; PULSE 84; RESP 16; O2SAT 100
== END 2023-06-06 12:45 | disposition home or self-care (01) ==
LOC: SUR 07:34
PROVIDERS: ATTEND Surgery Vascular Surgery
DX: I12.0 Hypertensive chronic kidney disease with stage 5 chronic kidney disease or end stage renal disease (principal); N18.6 End stage renal disease; Z99.2 Dependence on renal dialysis; Z80.3 Family history of malignant neoplasm of breast; Z85.46 Personal history of malignant neoplasm of prostate; Z80.0 Family history of malignant neoplasm of digestive organs; Z79.82 Long term (current) use of aspirin; Z79.899 Other long term (current) drug therapy; Z98.890 Other specified postprocedural states
CPT/HCPCS: 36415; 36821; 80053; 81001; 85025; 85610; 85730; 86850; 86900; 86901; J0330; J0690; J1100; J1644; J2175; J2250; J2371; J2405; J2704; J3010; J3490; J7040

== ENCOUNTER 2024-07-11 19:32 | Emergency (ER) | payer MEDICAID ==
[~2024-07-11] VITALS: Ht 170.2 cm; Wt 77.2 kg
[~2024-07-11 19:32] MED LIST changes: +LOSA-535 PO; -LOSA100T58 PO
--- NOTE | 2024-07-11 19:44 | ED.PDOC ---
History of Present Illness HPI Comments 69-year-old male with PMHx ESRD brought in by EMS presents with a chief complaint of syncope. Per EMS, patient went to use the restroom and then had a syncopal episode where he fell back to the wall and slid down to the floor. Patient denies hitting his head and denies a headache at this time. Patient had dialysis today and finished at 16:25 this evening. Patient gets dialysis every //. Patient blood sugar was 89. No other symptoms or modifying factors present at this time. Time Seen by MD: 19:38 Reviewed Notes: Medications, Allergies Allergies: Coded Allergies: No Known Drug Allergy (Verified Allergy, Unknown, 10/26/22) Home Meds Active Scripts Metoprolol Succinate (Metoprolol Succinate Er) 50 Mg Tab, 1 TAB PO BID, #60 TAB 5 Refills Prov:LATHA PATTERSON MD 11/08/22 Losartan Potassium (Losartan Potassium) 25 Mg Tab, 100 MG PO DAILY, #120 TAB Prov:LATHA PATTERSON MD 11/08/22 Atorvastatin Calcium (ATORVASTATIN CALCIUM) 20 Mg Tab, 40 MG PO HS for 30 Days, #30 TAB Prov:LATHA PATTERSON MD 11/08/22 Reported Medications Metoprolol Succinate (Metoprolol Succinate Er) 50 Mg Tab, 50 MG PO BID for 30 Days, MG 10/27/22 Losartan Potassium (Losartan Potassium) 100 Mg Tab, 100 MG PO DAILY for 30 Days, MG 10/27/22 Aspirin (Aspir-81) 81 Mg Tab, 1 TAB PO DAILY, #30 TAB 5 Refills 10/27/22 Furosemide (Furosemide) 40 Mg Tab, 40 MG PO TID for 30 Days, MG 10/27/22 Information Source: Patient, Emergency Med Personnel Mode of Arrival: EMS Severity: Moderate Timing: Minutes Duration: Since onset Prehospital treatment: 12 Lead EKG (NORMAL SINUS), Accucheck (89) Past Medical History PAST MEDICAL HISTORY: ESRD Surgical History: Denies all surgeries Family History Family History: Reviewed,noncontributory to illness Social History Smoker: Non-Smoker Alcohol: Denies ETOH Use Drugs: Denies Drug Use Constitutional: denies: chills, diaphoresis, fatigue, fever, malaise, sweats, weakness, others EENTM: denies: blurred vision, double vision, ear bleeding, ear discharge, ear drainage, ear pain, ear ringing, eye pain, eye redness, hearing loss, mouth pain, mouth swelling, nasal discharge, nose bleeding, nose congestion, nose pain, photophobia, tearing, throat pain, throat swelling, voice changes, others Respiratory: denies: cough, hemoptysis, orthopnea, SOB at rest, shortness of b reath, SOB with excertion, stridor, wheezing, others Cardiovascular: reports: syncope; denies: chest pain, dizzy spells, diaphoresis, Dyspnea on exertion, edema, irregular heart beat, left arm pain, lightheadedness, palpitations, PND, others Gastrointestinal: denies: abdomen distended, abdominal pain, blood streaked b owels, constipated, diarrhea, dysphagia, difficulty swallowing, hematemesis, melena, nausea, poor appetite, poor fluid intake, rectal bleeding, rectal pain, vomiting, others Genitourinary: denies: burning, dysuria, flank pain, frequency, hematuria, incontinence, penile discharge, penile sore, pain, testicle pain, testicle swelling, urgency, others Neurological: denies: dizziness, fainting, headache, left sided numbness, left sided weakness, numbness, paresthesia, pre-existing deficit, right sided numbness, right sided weakness, seizure, speech problems, tingling, tremors, weakness, others Musculoskeletal: denies: back pain, gout, joint pain, joint swelling, muscle pain, muscle stiffness, neck pain, others Integumetry: denies: bruises, change in color, change in hair/nails, dryness, laceration, lesions, lumps, rash, wounds, others Allergic/Immunocompromised: denies: Difficulty Healing, Frequent Infections, Hives, Itching, others Hematologic/Lymphatic: denies: anemia, blood clots, easy bleeding, easy bruisi ng, swollen glands, others Endocrine: denies: excessive hunger, excessive sweating, excessive thirst, exce ssive urination, flushing, intolerance to cold, intolerance to heat, unexplained weight gain, unexplained weight loss, others Psychiatric: denies: anxiety, bipolar disorder, depression, hopeless, panic disorder, schizophrenia, sleepless, suicidal, others All Other Systems: Reviewed and Negative Physical Exam General Appearance: No Apparent Distress, Normal HEENT: Normal ENT Inspection, Pharynx Normal, TMs Normal Neck: Full Range of Motion, Non-Tender, Normal, Normal Inspection Respiratory: Chest Non-Tender, Lungs Clear, No Accessory Muscle Use, No Respiratory Distress, Normal Breath Sounds Cardiovascular: No Edema, No JVD, No Murmur, No Gallop, Normal Peripheral Pulses, Regular Rate/Rhythm Breast Exam: Deferred Gastrointestinal: No Organomegaly, Non Tender, No Pulsatile Mass, Normal Bowel Sounds, Soft Genitalia: Deferred Pelvic: Deferred Rectal: Deferred Extremities: No calf tenderness, Normal capillary refill, Normal inspection, Normal range of motion, Non-tender, No pedal edema Musculoskeletal : Apperance: Normal Neurologic: Alert, patient scheduler II-XII nml as Tested, No Motor Deficits, Normal Affect, Normal Mood, No Sensory Deficits Cerebellar Function: Normal Reflexes: Normal Skin: Dry, Normal Color, Warm Lymphatic: No Adenopathy Was a procedure done? Was a procedure done?: No Differential Dx Considerations may include: Differential diagnosis includes but not limited to: Atrial fibrillation, supraventricular tachycardia, coronary ischemia, pulmonary embolus, ventricular arrhythmia and others X-Ray, Labs, Meds, VS Vital Signs Date Time Temp Pulse Resp B/P (MAP) Pulse Ox O2 Delivery O2 Flow Rate FiO2 07/11/24 20:00 93 07/11/24 19:44 98.5 98 16 116/70 (85) 97 98.5 07/11/24 19:38 97 Lab Test 07/11/24 19:48 Range/Units White Blood Count 8.2 4.4-10.8 10^3/uL Red Blood Count 3.71 L 4.5-5.90 10^6/uL Hemoglobin 11.4 L 13.5-17.5 g/dL Hematocrit 34.2 L 41.0-53.0 % Mean Corpuscular Volume 92.1 80.0-100.0 fL Mean Corpuscular Hemoglobin 30.6 28.0-32.0 pg Mean Corpuscular Hemoglobin Concent 33.2 32.0-36.0 g/dL Red Cell Distribution Width 18.3 H 11.8-14.3 % Platelet Count 124 L 140-450 10^3/uL Mean Platelet Volume 8.8 6.9-10.8 fL Neutrophils (%) (Auto) 51.7 37.0-80.0 % Lymphocytes (%) (Auto) 28.8 10.0-50.0 % Monocytes (%) (Auto) 11.2 0.0-12.0 % Eosinophils (%) (Auto) 7.2 H 0.0-7.0 % Basophils (%) (Auto) 1.1 0.0-2.0 % Neutrophils # (Auto) 4.2 1.6-8.6 10 ^3/uL Lymphocytes # (Auto) 2.4 0.4-5.4 10 ^3/uL Monocytes # (Auto) 0.9 0-1.3 10 ^3/uL Eosinophils # (Auto) 0.6 0-0.8 10 ^3/uL Basophils # (Auto) 0.1 0-0.2 10 ^3/uL Nucleated Red Blood Cells 0.0 % Sodium Level 139 136-145 mmol/L Potassium Level 3.8 3.5-5.1 mmol/L Chloride Level 98 98-107 mmol/L Carbon Dioxide Level 30 20-31 mmol/L Anion Gap 11 5-15 Blood Urea Nitrogen 20 9-23 mg/dL Creatinine 5.81 H 0.700-1.30 mg/dL Glomerular Filtration Rate Calc 10 >90 mL/min BUN/Creatinine Ratio 3.4 L 10.0-20.0 Serum Glucose 118 H 74-106 mg/dL Calcium Level 9.7 8.7-10.4 mg/dL Magnesium Level 2.0 1.6-2.6 mg/dL Total Bilirubin 0.7 0.2-1.0 mg/dL Aspartate Amino Transferase (AST) 13 13-40 U/L Alanine Aminotransferase (ALT) 13 7-40 U/L Alkaline Phosphatase 84 46-116 U/L Total Protein 7.7 5.7-8.2 g/dL Albumin 4.6 3.2-4.8 g/dL Time of 1ST Reevaluation: 20:08 Reevaluation 1ST: Unchanged Patient Education/Counseling: Diagnosis, Treatment, Prognosis Family Education/Counseling: No Family Present Departure 1 Departure Time of Disposition: 21:00 Impression: Primary Impression: End-stage renal disease (ESRD) Additional Impressions: Syncope Dialysis patient Disposition: 01 HOME / SELF CARE / HOMELESS Condition: Stable Discharged With: Self, Spouse Critical Care Note Critical Care Time?: No Stability Stability form required: No Heart Score Heart Score: Heart Score Response (Comments) Value History N/A 0 EKG N/A 0 Age N/A 0 Risk Factors N/A 0 Troponin N/A 0 Total 0 I personally scribed for RANJITH BERRY MD ([email or web address]) on 07/11/24 at 19:44. Electronically submitted by Zay Olguin ([email or web address]). RANJITH BERRY MD Jul 11, 2024 19:44
[2024-07-11 20:15] VITALS: PULSE 18; RESP 18; TEMP 97.7; O2SAT 95
[2024-07-11 20:18] LABS: Basophils # (auto) 0.1 10 ^3/uL (0-0.2); Basophils % (auto) 1.1 % (0.0-2.0); Eosinophils # (auto) 0.6 10 ^3/uL (0-0.8); Eosinophils % (auto) 7.2 % (0.0-7.0); Hematocrit 34.2 % (41.0-53.0); Hemoglobin 11.4 g/dL (13.5-17.5); Lymphocytes # (auto) 2.4 10 ^3/uL (0.4-5.4); Lymphocytes % (auto) 28.8 % (10.0-50.0); Mean Corpuscular Hemoglobin 30.6 pg (28.0-32.0); Mean Corpuscular Hgb Conc. 33.2 g/dL (32.0-36.0); Mean Corpuscular Volume 92.1 fL (80.0-100.0); Monocytes # (auto) 0.9 10 ^3/uL (0-1.3); Monocytes % (auto) 11.2 % (0.0-12.0); Neutrophils # (auto) 4.2 10 ^3/uL (1.6-8.6); Neutrophils % (auto) 51.7 % (37.0-80.0); Platelet Count (auto) 124 10^3/uL (140-450); Red Blood Cells 3.71 10^6/uL (4.5-5.90); Red Cell Distribution Width 18.3 % (11.8-14.3); White Blood Cell 8.2 10^3/uL (4.4-10.8)
[2024-07-11 20:27] LABS: Alanine Aminotransferase 13 U/L (7-40); Albumin 4.6 g/dL (3.2-4.8); Alkaline Phosphatase 84 U/L (46-116); Anion Gap 11 (5-15); Aspartate Aminotransferase 13 U/L (13-40); BUN/Creatinine Ratio 3.4 (10.0-20.0); Bilirubin, Total 0.7 mg/dL (0.2-1.0); Blood Urea Nitrogen 20 mg/dL (9-23); Calcium 9.7 mg/dL (8.7-10.4); Carbon Dioxide 30 mmol/L (20-31); Potassium 3.8 mmol/L (3.5-5.1); Sodium 139 mmol/L (136-145); Total Protein 7.7 g/dL (5.7-8.2)
[2024-07-11 20:36] LABS: Chloride 98 mmol/L (98-107); Glucose 118 mg/dL (74-106)
[2024-07-11 21:25] VITALS: BP 126/31; RESP 18; O2SAT 94
--- NOTE | 2024-07-12 06:39 | ECG ---
[facility] Test Date: 2024-07-11 Test Time: 19:38:02 Pat Name: JASON ACOSTA Department: ED Room: Gender: M Assembly Room Supervisor: HANH : [id number] Requested By: RANJITH BERRY Order Number: [id number] Reading MD: Aram Caballero Measurements Intervals [place] Rate: 97 P: 69 UT: 153 QRS: -4 QRSD: 96 T: 57 QT: 345 QTc: 439 Interpretive Statements Sinus rhythm Borderline low voltage, extremity leads Minimal ST elevation, inferior leads Electronically Signed On 07-13-2024 18:43:08 PDT by Aram Caballero Please click the below link to view image of tracing.
== END 2024-07-11 21:36 | disposition home or self-care (01) ==
LOC: EDBD 19:32 → ER 19:32
DX: N18.6 End stage renal disease (principal); R55 Syncope and collapse; Z99.2 Dependence on renal dialysis; Z79.899 Other long term (current) drug therapy; Z79.82 Long term (current) use of aspirin
CPT/HCPCS: 36415; 80053; 82947; 83735; 85025; 93005

== ENCOUNTER → 2024-08-16 | Outpatient (CLI) | payer MEDICAID ==
[~2024-08-16] VITALS: Ht 172.7 cm; Wt 77.6 kg
[~2024-08-16] MED LIST changes: +B-CO-9 OR; +CLAR1TAB21 PO; +FURO80TA3 PO; +METR-344 PO
[2024-08-16 11:58] LABS: Urine Bacteria None Seen /hpf (None Seen)
[2024-08-16 12:07] LABS: Basophils # (auto) 0 10 ^3/uL (0-0.2); Eosinophils # (auto) 0.4 10 ^3/uL (0-0.8); Eosinophils % (auto) 8.2 % (0.0-7.0); Hematocrit 34.1 % (41.0-53.0); Hemoglobin 11.2 g/dL (13.5-17.5); Lymphocytes # (auto) 2.1 10 ^3/uL (0.4-5.4); Lymphocytes % (auto) 42.7 % (10.0-50.0); Mean Corpuscular Hemoglobin 30.2 pg (28.0-32.0); Mean Corpuscular Hgb Conc. 32.9 g/dL (32.0-36.0); Mean Corpuscular Volume 91.6 fL (80.0-100.0); Monocytes # (auto) 0.7 10 ^3/uL (0-1.3); Monocytes % (auto) 14.1 % (0.0-12.0); Neutrophils # (auto) 1.7 10 ^3/uL (1.6-8.6); Nucleated Red Blood Cells % 0.1 %; Platelet Count (auto) 111 10^3/uL (140-450); Red Blood Cells 3.72 10^6/uL (4.5-5.90); Red Cell Distribution Width 14.6 % (11.8-14.3); White Blood Cell 4.9 10^3/uL (4.4-10.8)
[2024-08-16 12:12] LABS: Urine Blood TRACE /uL (Negative); Urine Clarity Clear (Clear); Urine Color Light-Yellow (Yellow); Urine Protein, UAD 1+ (Negative); Urine Specific Gravity 1.007 (1.001-1.035); Urine Squamous Epithelial Cell FEW /hpf (<5); Urine Urobilinogen Normal (Negative); Urine WBC 4 /HPF (0-3)
[2024-08-16 12:17] LABS: INR 1.08 (0.9-1.15); Partial Thromboplastin Time 28.8 SEC (24.5-34.5); Prothrombin Time 11.4 sec (9.3-11.8)
[2024-08-16 12:39] LABS: Alanine Aminotransferase 15 U/L (7-40); Albumin 4.4 g/dL (3.2-4.8); Alkaline Phosphatase 69 U/L (46-116); Anion Gap 9 (5-15); Aspartate Aminotransferase 20 U/L (13-40); BUN/Creatinine Ratio 3.6 (10.0-20.0); Carbon Dioxide 30 mmol/L (20-31); Chloride 102 mmol/L (98-107); Glucose 86 mg/dL (74-106); Potassium 4.3 mmol/L (3.5-5.1); Sodium 141 mmol/L (136-145); Total Protein 7.3 g/dL (5.7-8.2)
[2024-08-16 12:40] LABS: Bilirubin, Total 0.6 mg/dL (0.2-1.0); Blood Urea Nitrogen 27 mg/dL (9-23)
== END | disposition home or self-care (01) ==
LOC: LAB 11:46 → EDSTATUS 08-23 14:54
PROVIDERS: ATTEND Internal Medicine Gastroenterology
DX: Z01.812 Encounter for preprocedural laboratory examination (principal); Z12.11 Encounter for screening for malignant neoplasm of colon
CPT/HCPCS: 36415; 80053; 81001; 85025; 85610; 85730

== ENCOUNTER 2025-01-29 15:25 | Inpatient (IN) | payer MEDICAID ==
[~2025-01-29] VITALS: Ht 165.1 cm; Wt 80.1 kg
[~2025-01-29 15:25] MED LIST changes: -ATOR20TA50 PO; -FURO40TA4 PO; -LOS25T PO; -METO-289 PO
--- NOTE | 2025-01-29 16:02 | ED.PDOC ---
GI ASSESSMENT HPI Comments 69 y/o M, with PMHx of ESRD presents to the ED for CC of GI BLEED. Patient states, he has had blood stools [id number]. Patient reports, stool to be "bright red" in appearance. Patient relays, that he recently stopped taking Aspirin as per his PCP [id number] ago. Patient denies fatigue, weakness, abdominal pain, nausea, or vomiting. No other symptoms or modifying factors are present at this time. Chief Complaint: GI Bleed Time Seen by MD: 16:00 Reviewed Notes: Nurses Notes, Medications, Allergies Allergies: Coded Allergies: No Known Drug Allergy (Verified Allergy, Unknown, 10/26/22) Home Meds Reported Medications Clarithromycin (Clarithromycin) 500 Mg Tab, 500 MG PO BID, TAB 08/16/24 Metronidazole (Flagyl) 500 Mg Tab, 500 MG PO BID, TAB 08/16/24 B-Complex W/ N-[id number]-Rcg E & (Renatabs) Tab, 1 OR DAILY, TAB 08/16/24 Furosemide (Furosemide) 80 Mg Tab, 80 MG PO DAILY, TAB 08/16/24 Losartan Potassium (Losartan Potassium) 100 Mg Tab, 100 MG PO DAILY for 30 Days, MG 10/27/22 Aspirin (Aspir-81) 81 Mg Tab, 1 TAB PO DAILY, #30 TAB 5 Refills 10/27/22 Information Source: Patient Mode of Arrival: Ambulatory Timing: Weeks Duration: Since onset Prehospital treatment: None Vomitus: None Stool: Other (bloody) Severity: Moderate Recent: None Recent Hx of: None Pain Location: None Modifying Factors: Nothing Associated sign and symptoms: Blood in Stool Past Medical History PAST MEDICAL HISTORY: ESRD Surgical History: Denies all surgeries Family History Family History: Family hx of Cancer Social History Smoker: Non-Smoker Alcohol: Denies ETOH Use Drugs: Denies Drug Use Lives In: Home Constitutional: denies: chills, diaphoresis, fatigue, fever, malaise, sweats, weakness, others EENTM: denies: blurred vision, double vision, ear bleeding, ear discharge, ear drainage, ear pain, ear ringing, eye pain, eye redness, hearing loss, mouth pain, mouth swelling, nasal discharge, nose bleeding, nose congestion, nose pain, photophobia, tearing, throat pain, throat swelling, voice changes, others Respiratory: denies: cough, hemoptysis, orthopnea, SOB at rest, shortness of breath, SOB with excertion, stridor, wheezing, others Cardiovascular: denies: chest pain, dizzy spells, diaphoresis, Dyspnea on exertion, edema, irregular heart beat, left arm pain, lightheadedness, palpitations, PND, syncope, others Gastrointestinal: reports: others (bloody stools); denies: abdomen distended, abdominal pain, blood streaked bowels, constipated, diarrhea, dysphagia, difficulty swallowing, hematemesis, melena, nausea, poor appetite, poor fluid intake, rectal bleeding, rectal pain, vomiting Genitourinary: denies: burning, dysuria, flank pain, frequency, hematuria, incontinence, penile discharge, penile sore, pain, testicle pain, testicle swelling, urgency, others Neurological: denies: dizziness, fainting, headache, left sided numbness, left sided weakness, numbness, paresthesia, pre-existing deficit, right sided numbness, right sided weakness, seizure, speech problems, tingling, tremors, weakness, others Musculoskeletal: denies: back pain, gout, joint pain, joint swelling, muscle pain, muscle stiffness, neck pain, others Integumetry: denies: bruises, change in color, change in hair/nails, dryness, laceration, lesions, lumps, rash, wounds, others Allergic/Immunocompromised: denies: Difficulty Healing, Frequent Infections, Hives, Itching, others Hematologic/Lymphatic: denies: anemia, blood clots, easy bleeding, easy bruising, swollen glands, others Endocrine: denies: excessive hunger, excessive sweating, excessive thirst, excessive urination, flushing, intolerance to cold, intolerance to heat, unexplained weight gain, unexplained weight loss, others Psychiatric: denies: anxiety, bipolar disorder, depression, hopeless, panic disorder, schizophrenia, sleepless, suicidal, others All Other Systems: Reviewed and Negative Physical Exam General Appearance: Moderate Distress HEENT: Normal ENT Inspection, Pharynx Normal, TMs Normal Neck: Full Range of Motion, Non-Tender, Normal, Normal Inspection Respiratory: Chest Non-Tender, Lungs Clear, No Accessory Muscle Use, No Respiratory Distress, Normal Breath Sounds Cardiovascular: No Edema, No JVD, No Murmur, No Gallop, Normal Peripheral Pulses, Regular Rate/Rhythm Breast Exam: Deferred Gastrointestinal: Diffuse, No Organomegaly, No Pulsatile Mass, Normal Bowel Sounds, Soft, Tenderness Genitalia: Deferred Pelvic: Deferred Rectal: Deferred Extremities: No calf tenderness, Normal capillary refill, Normal inspection, Normal range of motion, Non-tender, No pedal edema Musculoskeletal : Apperance: Normal Neurologic: Alert, rn interventional II-XII nml as Tested, No Motor Deficits, Normal Affect, Normal Mood, No Sensory Deficits Cerebellar Function: Normal Reflexes: Normal Skin: Dry, Normal Color, Warm Lymphatic: No Adenopathy Was a procedure done? Was a procedure done?: No GI differential Dx Differential Diagnosis: Cholangitis, Constipation, Diverticular disease, Gastritis/PUD, Gastroenteritis, Inflammatory BD X-Ray, Labs, Meds, VS Vital Signs Date Time Temp Pulse Resp B/P (MAP) Pulse Ox O2 Delivery O2 Flow Rate FiO2 01/29/25 15:26 97.8 87 16 100/81 100 97.8 Lab Test 01/29/25 16:10 Range/Units White Blood Count 5.7 4.4-10.8 10^3/uL Red Blood Count 3.42 L 4.5-5.90 10^6/uL Hemoglobin 10.1 L 13.5-17.5 g/dL Hematocrit 31.1 L 41.0-53.0 % Mean Corpuscular Volume 90.7 80.0-100.0 fL Mean Corpuscular Hemoglobin 29.6 28.0-32.0 pg Mean Corpuscular Hemoglobin Concent 32.7 32.0-36.0 g/dL Red Cell Distribution Width 16.2 H 11.8-14.3 % Platelet Count 126 L 140-450 10^3/uL Mean Platelet Volume 9.3 6.9-10.8 fL Neutrophils (%) (Auto) 37.0-80.0 % Lymphocytes (%) (Auto) 10.0-50.0 % Monocytes (%) (Auto) 0.0-12.0 % Eosinophils (%) (Auto) 0.0-7.0 % Basophils (%) (Auto) 0.0-2.0 % Neutrophils # (Auto) 1.6-8.6 10 ^3/uL Lymphocytes # (Auto) 0.4-5.4 10 ^3/uL Monocytes # (Auto) 0-1.3 10 ^3/uL Differential Total Cells Counted Pending Neutrophils % (Manual) Pending Band Neutrophils % (Manual) Pending Lymphocytes % (Manual) Pending Monocytes % (Manual) Pending Eosinophils % (Manual) Pending Basophils % (Manual) Pending Metamyelocytes % (manual) Pending Myelocytes % (Manual) Pending Promyelocytes % (Manual) Pending Blast Cells % (Manual) Pending Reactive Lymphocytes Pending Platelet Estimate Pending Prothrombin Time 11.4 9.3-11.8 sec Prothrombin Time INR 1.08 0.9-1.15 Activated Partial Thromboplast Time 27.5 24.5-34.5 SEC Sodium Level 142 136-145 mmol/L Potassium Level 4.6 3.5-5.1 mmol/L Chloride Level 101 98-107 mmol/L Carbon Dioxide Level 28 20-31 mmol/L Anion Gap 13 5-15 Blood Urea Nitrogen 40 H 9-23 mg/dL Creatinine 9.59 H 0.700-1.30 mg/dL Glomerular Filtration Rate Calc 5 >90 mL/min BUN/Creatinine Ratio 4.2 L 10.0-20.0 Serum Glucose 93 74-106 mg/dL Calcium Level 9.1 8.7-10.4 mg/dL The patient's CAT scan of the abdomen and pelvis shows: Impression: No acute noncontrast CT abnormality in the abdomen or pelvis. Significant prostatomegaly. Suprapubic Molina catheter. Right coronary artery calcifications. INR is 1.08 The chemistry panel is within normal limits except for a BUN of 40 and a creatinine of 9.59 There is a concern with this patient's kidney function The patient is having bleeding that has persistent At this time, the patient is being admitted to the hospitalist. The CBC does show anemia with a hemoglobin of 10.1 Images Reviewed?: Images reviewed and evaluated by me Time of 1ST Reevaluation: 16:30 Reevaluation 1ST: Unchanged Patient Education/Counseling: Diagnosis, Treatment, Prognosis Family Education/Counseling: Diagnosis, Treatment, Prognosis SEPSIS Sepsis Screen Date sepsis recognized/suspect: Jan 29, 2025 Time Sepsis recognized/suspect: 1529 Recent Procedure: No On Antibiotic Therapy: No Respiratory Rate >20: No Heart Rate >90: No Temp<36 C (96.8 F) or >38.3 C: No SBP <90 or MAP <65 mmHG: No New Acute Mental Status Change: No Is the patient on CPAP, BIPAP,: No Physician Orders Complete Blood Count (01/29/25 15:56) Ct Ab Pel Wo Con-No Oral Or Iv (01/29/25 15:56) Manual Differential (01/29/25 16:10) Vital Signs Date Time Temp Pulse Resp B/P (MAP) Pulse Ox O2 Delivery O2 Flow Rate FiO2 01/29/25 15:26 97.8 87 16 100/81 100 97.8 Laboratory Tests Test 01/29/25 16:10 White Blood Count 5.7 10^3/uL (4.4-10.8) Departure 1 Departure Time of Disposition: 17:37 Impression: Primary Impression: End-stage renal disease (ESRD) Additional Impressions: Acute abdominal pain Lower GI bleed Anemia Qualified Codes: D64.9 - Anemia, unspecified Disposition: ADMITTED INPATIENT Admit to: Med Surg Condition: Fair Critical Care Note Critical Care Time?: No Stability Stability form required: Yes Unstable for transfer: ED Physician Assesment (Clinical assesment) Heart Score Heart Score: Heart Score Response (Comments) Value History N/A 0 EKG N/A 0 Age N/A 0 Risk Factors N/A 0 Troponin N/A 0 Total 0 I personally scribed for LIAM CHUNG MD ([email or web address]) on 01/29/25 at 16:02. Electronically submitted by Brie Silva ([email or web address]). LIAM CHUNG MD Jan 29, 2025 16:02
[2025-01-29 16:36] LABS: Hematocrit 31.1 % (41.0-53.0); Hemoglobin 10.1 g/dL (13.5-17.5); Mean Corpuscular Hemoglobin 29.6 pg (28.0-32.0); Mean Corpuscular Volume 90.7 fL (80.0-100.0)
[2025-01-29 16:43] LABS: Chloride 101 mmol/L (98-107); Potassium 4.6 mmol/L (3.5-5.1); Sodium 142 mmol/L (136-145)
[2025-01-29 16:44] LABS: Anion Gap 13 (5-15); Carbon Dioxide 28 mmol/L (20-31)
[2025-01-29 16:45] LABS: Calcium 9.1 mg/dL (8.7-10.4)
[2025-01-29 16:49] LABS: BUN/Creatinine Ratio 4.2 (10.0-20.0); Glucose 93 mg/dL (74-106)
[2025-01-29 16:51] LABS: INR 1.08 (0.9-1.15); Partial Thromboplastin Time 27.5 SEC (24.5-34.5); Prothrombin Time 11.4 sec (9.3-11.8)
[2025-01-29 16:52] LABS: Blood Urea Nitrogen 40 mg/dL (9-23)
--- NOTE | 2025-01-29 17:32 | DVH ---
CLINICAL HISTORY: lower GI bleed TECHNIQUE: CT of the abdomen and pelvis was performed without IV contrast. This exam was performed ac cording to our departmental dose optimization program. Up-to-date CT equipment and radiation dose red uction techniques are utilized as appropriate. CTDI 12 DLP 598 COMPARISON: CT CT AB PEL WO CON-NO ORAL OR IV on DOS: 10/27/22 FINDINGS: Abdomen/Pelvis: The spleen, pancreas, liver, gallbladder, adrenal glands, and right kidney are grossly unremarkable. Hypodense left renal lesions are incompletely characterized due to lack of IV contrast. The prostate gland is significantly enlarged, measuring 6.3 cm in transverse diameter. The bladder is decompressed by a suprapubic Molina catheter. The abdominal aorta is normal in course and caliber. There are minimal atherosclerotic calcifications . There is no free intraperitoneal air or fluid. There is no enlarged abdominal pelvic lymph node. There is no bowel wall thickening or dilatation. The appendix is normal. Other: The imaged lower thorax demonstrates right coronary artery calcifications. There are bilateral lower lung atelectasis and/or scar. No acute osseous abnormality is evident. Impression: No acute noncontrast CT abnormality in the abdomen or pelvis. Significant prostatomegaly. Suprapubic Molina catheter. Right coronary artery calcifications.
[2025-01-29] MEDS: PANTOPRAZOLE 40 MG/10 ML VIAL INJ IV ONE ×2 (17:45→21:15)
[2025-01-29 18:00] LABS: Total Cells Counted 100.0 (100)
[2025-01-29] MEDS ORDERED: hydrALAZINE HCL 20 MG/ML VL IV PRN (19:45)
[2025-01-29] MEDS ORDERED: ONDANSETRON HCL 4 MG/2 ML VIAL IV PRN (20:00)
--- NOTE | 2025-01-29 22:54 | DVHHP2 ---
History of Present Illness Reason for Visit: GI bleed History of Present Illness 69-year-old male presents for evaluation of GI bleed. Patient endorses a two week history of having intermittent episodes of bright red bloody stools. Denies taking blood thinners. Reports generalized weakness. No shortness for breath or chest pain. No abdominal pain, nausea or vomiting. Past Medical History Hypertension, end-stage renal disease Past Surgical History Dialysis access Family History Cancer Smoke: No ALCOHOL: none Drugs: None Lives: with Family Review of Systems Review of Systems Review of systems are currently negative otherwise addressed in HPI. Allergies: Coded Allergies: No Known Drug Allergy (Verified Allergy, Unknown, 10/26/22) Medications Current Medications Medications Dose Ordered Sig/Aleja Route Start Time Stop Time Status Last Admin Dose Admin Hydralazine HCl 10 mg Q6HP PRN IV 01/29/25 19:45 Pantoprazole Sodium 40 mg DAILY IV 01/30/25 10:00 Furosemide 40 mg DAILY IV 01/30/25 10:00 Ondansetron HCl 4 mg Q4HP PRN IV 01/29/25 20:00 Exam Vital Signs Vital Signs Date Time Temp Pulse Resp B/P (MAP) Pulse Ox O2 Delivery O2 Flow Rate FiO2 01/29/25 21:40 Room Air* 0 21 01/29/25 21:04 97.6 79 18 143/75 (97) 100 97.6 Exam Gen: 69-year-old male in no apparent distress. Skin: Warm, dry, normal color and texture, no rash. HEENT: Normocephalic atraumatic, mucous membranes moist and pink. Neck: Cervical and supraclavicular nodes normal without enlargement, trachea is midline, thyroid gland is normal without masses. Pulmonary: Clear to auscultation and percussion bilaterally. Cardiac: Regular rate and rhythm. No murmur Abdomen: Soft, nontender, nondistended, bowel sounds present all 4 quadrants, no guarding, no rigidity, no organomegaly. Extremities: No cyanosis, clubbing, no edema Neuro: Cranial nerves II through XII grossly intact, normal affect and speech, no focal motor deficits. Labs/Xrays Labs Test 01/29/25 16:10 Range/Units White Blood Count 5.7 4.4-10.8 10^3/uL Red Blood Count 3.42 L 4.5-5.90 10^6/uL Hemoglobin 10.1 L 13.5-17.5 g/dL Hematocrit 31.1 L 41.0-53.0 % Mean Corpuscular Volume 90.7 80.0-100.0 fL Mean Corpuscular Hemoglobin 29.6 28.0-32.0 pg Mean Corpuscular Hemoglobin Concent 32.7 32.0-36.0 g/dL Red Cell Distribution Width 16.2 H 11.8-14.3 % Platelet Count 126 L 140-450 10^3/uL Mean Platelet Volume 9.3 6.9-10.8 fL Neutrophils (%) (Auto) 37.0-80.0 % Lymphocytes (%) (Auto) 10.0-50.0 % Monocytes (%) (Auto) 0.0-12.0 % Eosinophils (%) (Auto) 0.0-7.0 % Basophils (%) (Auto) 0.0-2.0 % Neutrophils # (Auto) 1.6-8.6 10 ^3/uL Lymphocytes # (Auto) 0.4-5.4 10 ^3/uL Monocytes # (Auto) 0-1.3 10 ^3/uL Differential Total Cells Counted 100.0 100 Neutrophils % (Manual) 33 L 37.0-80.0 Band Neutrophils % (Manual) 0 Lymphocytes % (Manual) 46 10.0-50.0 Monocytes % (Manual) 9 0-12 Eosinophils % (Manual) 12 H 0-7 Basophils % (Manual) 0 0.0-2.0 Metamyelocytes % (manual) 0 Myelocytes % (Manual) 0 Promyelocytes % (Manual) 0 Blast Cells % (Manual) 0 Reactive Lymphocytes 0 Platelet Estimate Decreased Large Platelets Few Poikilocytosis (manual) Slight [place] Cells Few Prothrombin Time 11.4 9.3-11.8 sec Prothrombin Time INR 1.08 0.9-1.15 Activated Partial Thromboplast Time 27.5 24.5-34.5 SEC Sodium Level 142 136-145 mmol/L Potassium Level 4.6 3.5-5.1 mmol/L Chloride Level 101 98-107 mmol/L Carbon Dioxide Level 28 20-31 mmol/L Anion Gap 13 5-15 Blood Urea Nitrogen 40 H 9-23 mg/dL Creatinine 9.59 H 0.700-1.30 mg/dL Glomerular Filtration Rate Calc 5 >90 mL/min BUN/Creatinine Ratio 4.2 L 10.0-20.0 Serum Glucose 93 74-106 mg/dL Calcium Level 9.1 8.7-10.4 mg/dL SEPSIS Sepsis Screen Date sepsis recognized/suspect: Jan 29, 2025 Time Sepsis recognized/suspect: 2140 Recent Procedure: No On Antibiotic Therapy: No Respiratory Rate >20: No Heart Rate >90: No Temp<36 C (96.8 F) or >38.3 C: No SBP <90 or MAP <65 mmHG: No New Acute Mental Status Change: No Is the patient on CPAP, BIPAP,: No Physician Orders Ct Ab Pel Wo Con-No Oral Or Iv (01/29/25 15:56) Hydralazine Injection (Apresoline Inject (01/29/25 19:45) Stool Occult Blood (01/29/25 19:38) Pantoprazole (Protonix) (01/30/25 10:00) * [facility] (01/29/25 19:38) *[facility] (01/29/25 19:38) Furosemide Injection (Lasix Injection) (01/30/25 10:00) Basic Metabolic Panel (01/30/25 04:00) Admit (01/29/25 19:46) Ondansetron Hcl (Zofran) (01/29/25 20:00) Complete Blood Count (01/30/25 04:00) Npo (Nothing By Mouth) Diet (01/30/25 Breakfast) Condition: Stable (01/29/25 19:46) Bedrest With Bathroom Privileg (01/29/25 19:46) Vital Signs Date Time Temp Pulse Resp B/P (MAP) Pulse Ox O2 Delivery O2 Flow Rate FiO2 01/29/25 21:40 Room Air* 0 21 01/29/25 21:04 97.6 79 18 143/75 (97) 100 97.6 01/29/25 19:17 81 18 163/70 (101) 98 01/29/25 19:17 81 18 98 Room Air 01/29/25 18:58 81 16 108/87 (94) 98 01/29/25 15:26 97.8 87 16 100/81 100 97.8 Laboratory Tests Test 01/29/25 16:10 White Blood Count 5.7 10^3/uL (4.4-10.8) Medications Medications Dose Ordered Sig/Aleja Route Start Time Stop Time Status Last Admin Dose Admin Pantoprazole Sodium 40 mg ONCE ONCE IV 01/29/25 19:45 01/29/25 20:54 DC 01/29/25 21:15 40 MG Assessment/Plan Assessment/Plan Assessment GI bleed End-stage renal disease, dialysis dependent Hypertension Anemia of chronic disease Plan Admit the [facility] to [facility] to the hospitalist NPO GI consult Protonix Nephrology consultation Continue treatment per orders. Plan discussed with: Patient My Orders Orders - ARPAN RENO Procedure Category Date Status Time Hydralazine Injection PHA 01/29/25 In Process (Apresoline Inject 19:45 Stool Occult Blood LAB 01/29/25 Logged 19:38 Pantoprazole PHA 01/30/25 In Process (Protonix) 10:00 * [facility] CONS 01/29/25 Transmitted 19:38 *[facility] CONS 01/29/25 Transmitted -[place] 19:38 Furosemide Injection PHA 01/30/25 In Process (Lasix Injection) 10:00 Basic Metabolic Panel LAB 01/30/25 Verified 04:00 Admit ADMIT 01/29/25 Transmitted 19:46 Ondansetron Hcl PHA 01/29/25 In Process (Zofran) 20:00 Complete Blood Count LAB 01/30/25 Verified 04:00 Npo (Nothing By DIET 01/30/25 Transmitted Mouth) Diet Breakfast Condition: Stable TIKI 01/29/25 In Process 19:46 Bedrest With Bathroom TIKI 01/29/25 In Process Privileg 19:46 Date of Service: Jan 29, 2025 Billing Provider: ARPAN RENO Common Visit Codes: [id number] INP/OBS CARE (HIGH) ARPAN RENO Jan 29, 2025 22:54
[2025-01-29 23:17] VITALS: BP 123/61; PULSE 77; RESP 19; TEMP 97.6; O2SAT 98
[2025-01-30] VITALS (9 sets, daily range): BP systolic 105–158; BP diastolic 52–87; PULSE 60–75; RESP 13–18; TEMP 96.7–97.9; O2SAT 95–100
[2025-01-30 06:00] LABS: Hematocrit 27.8 % (41.0-53.0); Hemoglobin 9.4 g/dL (13.5-17.5); Mean Corpuscular Hemoglobin 29.8 pg (28.0-32.0); Mean Corpuscular Volume 88.8 fL (80.0-100.0)
[2025-01-30 06:13] LABS: Anion Gap 13 (5-15); Carbon Dioxide 26 mmol/L (20-31); Chloride 103 mmol/L (98-107); Potassium 4.6 mmol/L (3.5-5.1); Sodium 142 mmol/L (136-145)
[2025-01-30 06:15] LABS: Calcium 9.2 mg/dL (8.7-10.4)
[2025-01-30 06:19] LABS: BUN/Creatinine Ratio 4.3 (10.0-20.0); Glucose 84 mg/dL (74-106)
[2025-01-30 06:20] LABS: Blood Urea Nitrogen 45 mg/dL (9-23)
[2025-01-30 06:50] LABS: Total Cells Counted 100.0 (100)
[2025-01-30] MEDS ORDERED: SODIUM CHL 0.9% 1000 ML BAG XX ONE (09:15)
[2025-01-30] MEDS: PANTOPRAZOLE 40 MG/10 ML VIAL INJ IV SCH (10:04)
[2025-01-30] MEDS: FUROSEMIDE 40 MG/4 ML VIAL IV SCH (10:05)
[2025-01-30 11:21] LABS: Iron 44.0 ug/dL (65-175); Total Iron Binding Capacity 194.0 ug/dL (250-425)
[2025-01-30 13:53] LABS: Hepatitis B Surface Antigen Negative (Negative); Hepatitis C Antibody Negative (Negative)
--- NOTE | 2025-01-30 14:00 | DVHINCON2 ---
Date of service: Jan 30, 2025 Reason for Consultation End-stage renal disease History of Present Illness 69-year-old male past medical history of end-stage renal disease on hemodialysis presents to the hospital after multiple bloody bowel movements nephrology consulted for management of chronic kidney disease Allergies: Coded Allergies: No Known Drug Allergy (Verified Allergy, Unknown, 10/26/22) Home Meds Reported Medications B-Complex W/ O-Bwjihz-Vam E & (Renatabs) Tab, 1 OR DAILY, TAB 08/16/24 Losartan Potassium (Losartan Potassium) 100 Mg Tab, 50 MG PO DAILY for 30 Days, MG 10/27/22 Current Medications Current Medications Medications (Trade) Dose Ordered Sig/Aleja Route PRN Reason Start Time Stop Time Status Last Admin Hydralazine HCl (Apresoline Injection) 10 mg Q6HP PRN IV SBP>150 01/29/25 19:45 Pantoprazole Sodium (Protonix) 40 mg DAILY IV 01/30/25 10:00 01/30/25 10:04 Furosemide (Lasix Injection) 40 mg DAILY IV 01/30/25 10:00 01/30/25 10:05 Ondansetron HCl (Zofran) 4 mg Q4HP PRN IV NAUSEA / VOMITING 01/29/25 20:00 Review of Systems Bright red blood per rectum H&P Exam Vital Signs/I&O Vital Sign Date Time Temp Pulse Resp B/P (MAP) Pulse Ox O2 Delivery O2 Flow Rate FiO2 01/30/25 12:35 97.9 60 18 134/82 (99) 100 97.9 01/30/25 08:00 Room Air* 0 21 Labs/Diagnostic Data Labs/Diagnostic Data Laboratory Tests Test 01/30/25 05:18 01/29/25 16:10 01/29/25 08:08 Range/Units White Blood Count 5.6 5.7 4.4-10.8 10^3/uL Red Blood Count 3.14 L 3.42 L 4.5-5.90 10^6/uL Hemoglobin 9.4 L 10.1 L 13.5-17.5 g/dL Hematocrit 27.8 #L 31.1 L 41.0-53.0 % Mean Corpuscular Volume 88.8 90.7 80.0-100.0 fL Mean Corpuscular Hemoglobin 29.8 29.6 28.0-32.0 pg Mean Corpuscular Hemoglobin Concent 33.6 32.7 32.0-36.0 g/dL Red Cell Distribution Width 15.6 H 16.2 H 11.8-14.3 % Platelet Count 114 L 126 L 140-450 10^3/uL Mean Platelet Volume 9.1 9.3 6.9-10.8 fL Neutrophils (%) (Auto) 37.0-80.0 % Lymphocytes (%) (Auto) 10.0-50.0 % Monocytes (%) (Auto) 0.0-12.0 % Basophils (%) (Auto) 0.0-2.0 % Neutrophils # (Auto) 1.6-8.6 10 ^3/uL Lymphocytes # (Auto) 0.4-5.4 10 ^3/uL Monocytes # (Auto) 0-1.3 10 ^3/uL Differential Total Cells Counted 100.0 100.0 100 Neutrophils % (Manual) 62 33 L 37.0-80.0 Band Neutrophils % (Manual) 0 0 Lymphocytes % (Manual) 12 46 10.0-50.0 Monocytes % (Manual) 12 9 0-12 Eosinophils % (Manual) 14 H 12 H 0-7 Basophils % (Manual) 0 0 0.0-2.0 Metamyelocytes % (manual) 0 0 Myelocytes % (Manual) 0 0 Promyelocytes % (Manual) 0 0 Blast Cells % (Manual) 0 0 Reactive Lymphocytes 0 0 Platelet Estimate Decreased Decreased Poikilocytosis (manual) Slight Slight Spherocytes Few [place] Cells Few Sodium Level 142 142 136-145 mmol/L Potassium Level 4.6 4.6 3.5-5.1 mmol/L Chloride Level 103 101 98-107 mmol/L Carbon Dioxide Level 26 28 20-31 mmol/L Anion Gap 13 13 5-15 Blood Urea Nitrogen 45 H 40 H 9-23 mg/dL Creatinine 10.56 *H 9.59 H 0.700-1.30 mg/dL Glomerular Filtration Rate Calc 5 5 >90 mL/min BUN/Creatinine Ratio 4.3 L 4.2 L 10.0-20.0 Serum Glucose 84 93 74-106 mg/dL Calcium Level 9.2 9.1 8.7-10.4 mg/dL Iron Level 44 L 65-175 ug/dL Total Iron Binding Capacity 194 L 250-425 ug/dL Percent Iron Saturation 22.7 20-55 % Ferritin 462.9 H 22-322 ng/mL Hepatitis A IgM Antibody Negative Hepatitis B Surface Antigen Negative Negative Hepatitis B Core IgM Antibody Negative Negative Hepatitis C Antibody Negative Negative Eosinophils (%) (Auto) 0.0-7.0 % Large Platelets Few Prothrombin Time 11.4 9.3-11.8 sec Prothrombin Time INR 1.08 0.9-1.15 Activated Partial Thromboplast Time 27.5 24.5-34.5 SEC Stool Occult Blood Positive Negative Stool Occult Blood Sample #3 Negative Assessment End-stage renal disease on hemodialysis Hemodialysis treatment today Anemia due to gastrointestinal bleeding Gastroenterology consultation and supportive care History of hypertension however BP currently at this time is low we will hold blood pressure medications Renal diet to be resumed when cleared by Gastroenterology Avoid heparin during dialysis Avoid hypotension Rest of care as per primary medical team Plan discussed with: Patient ALLAN MCGUIRE MD Jan 30, 2025 14:00
[2025-01-30] MEDS ORDERED: POLYETHYLENE GLYCOL 17 GM PWDR PO PRN (15:45)
--- NOTE | 2025-01-30 15:59 | DVHCONRES ---
Date Seen: Jan 30, 2025 Resident Creating Document: JHAJJ,SARLALAET RESIDENT Referring Physician wisam Reason for Consultation GI bleed History of Present Illness Patient is a 69-year-old male with a history of end-stage renal disease on hemodialysis Tuesday for the last about 4 years, hypertension presented to the hospital with a chief complaint of bleeding per rectum for the last 2 weeks, bright red in color, on and off with the bowel movements. Patient denied any abdominal pain, tenesmus, recent weight loss, nausea vomiting, acidity or reflux. Patient denied chronic NSAID or alcohol use. He reports that he was on antiplatelet drug aspirin and [place] remember other drug which he was taking. Patient denied any history of cirrhosis and never had a prior GI bleed. On arrival patient is hemoglobin was 10.1 which dropped to 9.4, on reviewing previous history patient has had low hemoglobin during previous admissions in the range of 9-11 g/dL. PT INR within normal limits, platelets slightly low but above [id number]. CT abdomen pelvis without contrast was done which showed no acute abdominopelvic abnormality, prostatomegaly were seen. He never had a colonoscopy before Past Medical History End-stage renal disease on dialysis Tuesday, hypertension Past Surgical History Denies any recent surgeries Family History Denies any family history of colon cancer/GI cancer in the family Social History Denies current smoking, alcohol, drug use Allergies: Coded Allergies: No Known Drug Allergy (Verified Allergy, Unknown, 10/26/22) Home Meds Reported Medications B-Complex W/ Y-Cplgqo-Gfm E & (Renatabs) Tab, 1 OR DAILY, TAB 08/16/24 Losartan Potassium (Losartan Potassium) 100 Mg Tab, 50 MG PO DAILY for 30 Days, MG 10/27/22 Current Medications Current Medications Medications (Trade) Dose Ordered Sig/Aleja Route PRN Reason Start Time Stop Time Status Last Admin Hydralazine HCl (Apresoline Injection) 10 mg Q6HP PRN IV SBP>150 01/29/25 19:45 Pantoprazole Sodium (Protonix) 40 mg DAILY IV 01/30/25 10:00 01/30/25 10:04 Furosemide (Lasix Injection) 40 mg DAILY IV 01/30/25 10:00 01/30/25 10:05 Ondansetron HCl (Zofran) 4 mg Q4HP PRN IV NAUSEA / VOMITING 01/29/25 20:00 Review of Systems Patient seen and examined with the bedside Does not report of any abdominal pain, nausea, vomiting, rectal pain, constipation Reported last bowel movement was yesterday Vital Signs Vital Signs Date Time Temp Pulse Resp B/P (MAP) Pulse Ox O2 Delivery O2 Flow Rate FiO2 01/30/25 12:35 97.9 60 18 134/82 (99) 100 97.9 01/30/25 08:00 Room Air* 0 21 Physical Exam Gen - mild conjunctival pallor, no scleral icterus Skin - Patients skin is warm and dry. HEENT - normocephalic, atraumatic, dry mucous membranes. Neck - supple, no lymphadenopathy Pulmonary - B/L equal air entry with vesicular breath sounds cardiovascular - regular S1,S2 heard GI - soft nontender abdomen. Bowel sounds normoactive. Suprapubic catheter seen Neurological - Patient is alert and oriented x4. No motor or sensory weakness Labs/Diagnostic Data Labs Test 01/30/25 05:18 01/29/25 16:10 01/29/25 08:08 Range/Units White Blood Count 5.6 4.4-10.8 10^3/uL Red Blood Count 3.14 L 4.5-5.90 10^6/uL Hemoglobin 9.4 L 13.5-17.5 g/dL Hematocrit 27.8 #L 41.0-53.0 % Mean Corpuscular Volume 88.8 80.0-100.0 fL Mean Corpuscular Hemoglobin 29.8 28.0-32.0 pg Mean Corpuscular Hemoglobin Concent 33.6 32.0-36.0 g/dL Red Cell Distribution Width 15.6 H 11.8-14.3 % Platelet Count 114 L 140-450 10^3/uL Mean Platelet Volume 9.1 6.9-10.8 fL Neutrophils (%) (Auto) 37.0-80.0 % Lymphocytes (%) (Auto) 10.0-50.0 % Monocytes (%) (Auto) 0.0-12.0 % Basophils (%) (Auto) 0.0-2.0 % Neutrophils # (Auto) 1.6-8.6 10 ^3/uL Lymphocytes # (Auto) 0.4-5.4 10 ^3/uL Monocytes # (Auto) 0-1.3 10 ^3/uL Differential Total Cells Counted 100.0 100 Neutrophils % (Manual) 62 37.0-80.0 Band Neutrophils % (Manual) 0 Lymphocytes % (Manual) 12 10.0-50.0 Monocytes % (Manual) 12 0-12 Eosinophils % (Manual) 14 H 0-7 Basophils % (Manual) 0 0.0-2.0 Metamyelocytes % (manual) 0 Myelocytes % (Manual) 0 Promyelocytes % (Manual) 0 Blast Cells % (Manual) 0 Reactive Lymphocytes 0 Platelet Estimate Decreased Poikilocytosis (manual) Slight Spherocytes Few [place] Cells Sodium Level 142 136-145 mmol/L Potassium Level 4.6 3.5-5.1 mmol/L Chloride Level 103 98-107 mmol/L Carbon Dioxide Level 26 20-31 mmol/L Anion Gap 13 5-15 Blood Urea Nitrogen 45 H 9-23 mg/dL Creatinine 10.56 *H 0.700-1.30 mg/dL Glomerular Filtration Rate Calc 5 >90 mL/min BUN/Creatinine Ratio 4.3 L 10.0-20.0 Serum Glucose 84 74-106 mg/dL Calcium Level 9.2 8.7-10.4 mg/dL Iron Level 44 L 65-175 ug/dL Total Iron Binding Capacity 194 L 250-425 ug/dL Percent Iron Saturation 22.7 20-55 % Ferritin 462.9 H 22-322 ng/mL Hepatitis A IgM Antibody Negative Hepatitis B Surface Antigen Negative Negative Hepatitis B Core IgM Antibody Negative Negative Hepatitis C Antibody Negative Negative Eosinophils (%) (Auto) 0.0-7.0 % Large Platelets Few Prothrombin Time 11.4 9.3-11.8 sec Prothrombin Time INR 1.08 0.9-1.15 Activated Partial Thromboplast Time 27.5 24.5-34.5 SEC Stool Occult Blood Positive Negative Stool Occult Blood Sample #3 Negative Assessment Assessment Lower GI bleed , FOBT positive Possible Hemorrhoids Possible Colonic pathology Normocytic normochromic anemia Possible anemia of chronic disease End-stage renal disease on dialysis Plan - on clear liquid diet, advanced as tolerated - Protonix daily - patient will benefit from a colonoscopy, to be scheduled for Tuesday - monitor H&H - senna and MiraLax as needed for constipation Plan discussed with the Dr. Britton Plan discussed with: Patient, Other (ANGELES waggoner) SALLY IZQUIERDO RESIDENT Jan 30, 2025 15:59
--- NOTE | 2025-01-30 21:21 | DVHPNRES ---
Progress Note Date Seen: Jan 30, 2025 Resident Creating Document: FITO KRISHNAMURTHY RESIDENT Has the PT tested + for MRSA If YES, has PT been informed?: No Medical Necessity Reason Pt with a Central, PICC or Fol: No Subjective Review of Systems Mandi Lopez is a 69-year-old male, with past medical history of CKD Stage V (On hemodialysis MWF) and hypertension. The patient came to the ED with chief complain of 2 weeks of noticing blood in the stools, the blood is bright red, that is intermittent, patient related with BP medication Losartan 50mg bid. Associated with general weakness and fatigue. The patient denies abdominal pain, constipation, diarrhea, fever, chills, dizziness. The patient reports he is no taking oral blood thinners. Today, the patient reports that the sysmtoms persisted, this prompted his visit to the ED. In the ED Hb: 10.1mg/dl, BP: 158/87mmhg, and the FOBT was positive. On past medical history: Hypertension, end-stage renal disease. Past Surgical History. Dialysis access. He is do not uses alcohol, smokes or drugs. On admission course: The patient was evaluated and examined by bedsied today 01/30/25. The patient reports feeling well, no new complaints. VS: BP 113/72mmg, HR: 64bpm. Labs: Hb: 9.4mg/dl. GI is on board, they will perform colonoscopy on 02/01/2025. We will continue monitoring this patient. ROS: Constitutional: No: Fever, Chills, Sweats, Weakness, Malaise, Other Eyes: No: Pain, Vision change, Conjunctivae inflammation, Eyelid inflammation, Other, Redness ENT: No: Ear pain, Ear discharge, Nose pain, Nose discharge, Nose congestion, Mouth pain, Mouth swelling, Throat pain, Throat swelling, Other Respiratory: No: Cough, Dry, SOB with excertion, Wheezing, Hemoptysis, Pleuritic Pain, Sputum, Wheezing, Other Cardiovascular: No: Palpitations, Orthopnea, Paroxysmal Noc. Dyspnea, Edema, Lt Headedness, Other Gastrointestinal: No: Nausea, Vomiting, Abdominal Pain, Diarrhea, Constipation, Melena, Hematochezia, Other Genitourinary: reports cathether in the suprapubic area No Dysuria, No Frequency, No Incontinence, No Hematuria, No Retention, No Other Musculoskeletal: No: other, neck pain, shoulder pain, arm pain, back pain, hand pain, leg pain, foot pain Skin: No: Rash, Lesions, Jaundice, Bruising, Other Neurological: No: Weakness, Numbness, Incoordination, Change in speech, Confusion, Seizures, Other Allergies: NO KNOWN ALLERGIES Objective vital signs Vital Sign Date Time Temp Pulse Resp B/P (MAP) Pulse Ox O2 Delivery O2 Flow Rate FiO2 01/30/25 17:01 97.6 65 18 158/87 (110) 95 97.6 01/30/25 08:00 Room Air* 0 21 medications Current Medications Medications Dose Ordered Sig/Aleja Route Start Time Stop Time Status Last Admin Dose Admin Hydralazine HCl 10 mg Q6HP PRN IV 01/29/25 19:45 Pantoprazole Sodium 40 mg DAILY IV 01/30/25 10:00 01/30/25 10:04 40 MG Furosemide 40 mg DAILY IV 01/30/25 10:00 01/30/25 10:05 40 MG Ondansetron HCl 4 mg Q4HP PRN IV 01/29/25 20:00 Polyethylene Glycol 17 gm DAILYPRN PRN PO 01/30/25 15:45 Sennosides 8.6 mg HS PO 01/30/25 22:00 Examination General Appearance: patient not in distress, alert, oriented X3, Cooperative. HEENT: Atraumatic, PERRLA, EOMI, Mucous membrane moist/pink Respiratory: bilateral mild crackles on the bases. normal lung expansion. Cardiovascular: Chest: Port on right side of the chest for hemodialysis. R egular rate, Normal S1, Normal S2, No murmurs, no chest wall tenderness Abdominal: Normal bowel sounds, Soft, No tenderness, No hepatospenomegaly, No masses : Suprapubic [place] catheter, draining clear urine. Extremities: Left arm fistula. No clubbing, No cyanosis, No edema, Normal pulses, No tenderness/swelling Skin: No rashes, No breakdown, No significant lesion Neuro: Grossly intact cranial nerves Cranial nerves 3-12 NL, Reflexes 2+ Psych/Mental Status: Normal mood. laboratory and microbiology Laboratory Tests 01/30/25 05:18 Test 01/30/25 05:18 Range/Units Serum Glucose 84 74-106 mg/dL Problem List/Assessment/Plan Problem List/Assessment/Plan # GI bleed: rule out Upper Vs Lower FOBT positive UA, UDS, CBC, CMP, iron panel IV fluid, NS Type and screen GI consult #End-stage renal disease, dialysis dependent Hemodialysis MWF through port access # Essential Hypertension Losartan 50mg BID #Anemia of chronic disease Hb:9.4mg/dl Iron Panel Diet: Renal diet DVT prevention: Patient deambulates Goals of care discussed with the patient > 35 min. Discussed plan of care with Dr. Calhoun Code status: Full code PCP: Maru Watkins Plan discussed with: Patient, the patient agrees with the plan. Plan discussed with: Patient Date of Service: Jan 30, 2025 Billing Provider: FITO KRISHNAMURTHY Common Visit Codes: [id number] INP/OBS CARE(HIGH) Secondary Visit Codes: [id number] CARE PLAN 30 MINUTES FITO KRISHNAMURTHY Jan 30, 2025 21:21 POOJA CALHOUN MD Jan 31, 2025 08:42
[2025-01-30] MEDS: SENNA 8.6 MG TAB PO SCH (22:13)
[2025-01-30] MEDS: EPOETIN ALFA-EPBX 10,000 UNIT/1ML VIAL SC ONE (22:14)
[2025-01-31] VITALS (8 sets, daily range): BP systolic 99–156; BP diastolic 61–78; PULSE 66–89; RESP 17–20; TEMP 97.9–99.2; O2SAT 94–100
[2025-01-31 07:15] LABS: Hematocrit 28.1 % (41.0-53.0); Hemoglobin 9.5 g/dL (13.5-17.5); Mean Corpuscular Hemoglobin 30.1 pg (28.0-32.0); Mean Corpuscular Volume 89.2 fL (80.0-100.0)
[2025-01-31 07:22] LABS: Chloride 101 mmol/L (98-107); Potassium 5.1 mmol/L (3.5-5.1); Sodium 140 mmol/L (136-145)
[2025-01-31 07:23] LABS: Anion Gap 11 (5-15); Calcium 8.9 mg/dL (8.7-10.4); Carbon Dioxide 28 mmol/L (20-31)
[2025-01-31 07:28] LABS: BUN/Creatinine Ratio 3.3 (10.0-20.0); Glucose 80 mg/dL (74-106)
[2025-01-31 07:36] LABS: Blood Urea Nitrogen 33 mg/dL (9-23); Total Cells Counted 100.0 (100)
[2025-01-31] MEDS: DEXTROSE (50%) 50ML SYRG IV ONE (08:49)
[2025-01-31] MEDS: InsuLIN REG 1unit/0.01ml Soln (100units/ml) IV ONE (09:00)
[2025-01-31] MEDS: GOLYTELY 4L KIT PO ONE (09:18)
--- NOTE | 2025-01-31 14:24 | DVHPN2 ---
Progress Note Date Seen: Jan 31, 2025 Has the PT tested + for MRSA If YES, has PT been informed?: No Medical Necessity Reason Pt with a Central, PICC or Fol: No Objective vital signs Vital Sign Date Time Temp Pulse Resp B/P (MAP) Pulse Ox O2 Delivery O2 Flow Rate FiO2 01/31/25 12:57 98.8 89 20 111/64 (80) 99 98.8 01/31/25 08:00 Room Air* 0 21 Total Intake and Output 01/30/25 01/30/25 01/31/25 15:00 23:00 07:00 Intake Total 100 ml 200 ml Balance 100 ml 200 ml medications Current Medications Medications Dose Ordered Sig/Aleja Route Start Time Stop Time Status Last Admin Dose Admin Hydralazine HCl 10 mg Q6HP PRN IV 01/29/25 19:45 Pantoprazole Sodium 40 mg DAILY IV 01/30/25 10:00 01/31/25 09:03 40 MG Furosemide 40 mg DAILY IV 01/30/25 10:00 01/31/25 09:03 40 MG Ondansetron HCl 4 mg Q4HP PRN IV 01/29/25 20:00 Polyethylene Glycol 17 gm DAILYPRN PRN PO 01/30/25 15:45 Sennosides 8.6 mg HS PO 01/30/25 22:00 01/30/25 22:13 8.6 MG laboratory and microbiology Laboratory Tests 01/31/25 12:05 01/31/25 06:35 Test 01/31/25 06:35 Range/Units Serum Glucose 80 74-106 mg/dL Problem List/Assessment/Plan Problem List/Assessment/Plan End-stage renal disease on hemodialysis Hemodialysis treatment tomorrow Anemia due to gastrointestinal bleeding Gastroenterology consultation and supportive care History of hypertension however BP currently at this time is low we will hold blood pressure medications Renal diet to be resumed when cleared by Gastroenterology Avoid heparin during dialysis Avoid hypotension Rest of care as per primary medical team Plan discussed with: Patient ALLAN MCGUIRE MD Jan 31, 2025 14:24
--- NOTE | 2025-01-31 16:54 | DVH ---
CHEST RADIOGRAPH Indication: protocol Technique: Single frontal view of the chest was obtained Comparison: XY CHEST PORTABLE on DOS: 10/26/22 FINDINGS: Right IJ catheter tip projects over the SVC. The cardiac silhouette is enlarged. The lungs demonstrate perihilar airspace opacities. The pulmonary vasculature is prominent. There is no pleural effusion. There is no pneumothorax. IMPRESSION: As above
[2025-01-31 19:11] LABS: Urine Protein, UAD 1+ (Negative)
--- NOTE | 2025-01-31 19:14 | DVHPNRES ---
Progress Note Date Seen: Jan 31, 2025 Resident Creating Document: FITO KRISHNAMURTHY RESIDENT Has the PT tested + for MRSA If YES, has PT been informed?: No Medical Necessity Reason Pt with a Central, PICC or Fol: No Subjective Review of Systems Mandi Lopez is a 69-year-old male, with past medical history of CKD Stage V (On hemodialysis MWF) and hypertension. The patient came to the ED with chief complain of 2 weeks of noticing blood in the stools, the blood is bright red, that is intermittent, patient related with BP medication Losartan 50mg bid. Associated with general weakness and fatigue. The patient denies abdominal pain, constipation, diarrhea, fever, chills, dizziness. The patient reports he is no taking oral blood thinners. Today, the patient reports that the symptoms persisted, this prompted his visit to the ED. In the ED Hb: 10.1mg/dl, BP: 158/87mmhg, and the FOBT was positive. On past medical history: Hypertension, end-stage renal disease. Past Surgical History. Dialysis access. He is do not uses alcohol, smokes or drugs. On admission course: The patient was evaluated and examined by bedside on 01/30/25; the patient reports feeling well, no new complaints. VS: BP 113/72mmg, HR: 64bpm. Labs: Hb: 9.4mg/dl. GI is on board, they will perform colonoscopy on 02/01/2025. We will continue monitoring this patient. Today, 01/31/25, the patient was re-evaluated and examined at the bedside, reports feeling well, VS, labs showed anemia Hb: 9.4mg/dl. The patiente received hemodialysis yesterday. GI on board, colonoscopy will be performed tomorrow. We will continue following up this patient. ROS: Constitutional: No: Fever, Chills, Sweats, Weakness, Malaise, Other Eyes: No: Pain, Vision change, Conjunctivae inflammation, Eyelid inflammation, Other, Redness ENT: No: Ear pain, Ear discharge, Nose pain, Nose discharge, Nose congestion, Mouth pain, Mouth swelling, Throat pain, Throat swelling, Other Respiratory: No: Cough, Dry, SOB with excertion, Wheezing, Hemoptysis, Pleuritic Pain, Sputum, Wheezing, Other Cardiovascular: No: Palpitations, Orthopnea, Paroxysmal Noc. Dyspnea, Edema, Lt Headedness, Other Gastrointestinal: No: Nausea, Vomiting, Abdominal Pain, Diarrhea, Constipation, Melena, Hematochezia, Other Genitourinary: No Dysuria, No Frequency, No Incontinence, No Hematuria, No Retention, No Other Musculoskeletal: No: other, neck pain, shoulder pain, arm pain, back pain, hand pain, leg pain, foot pain Skin: No: Rash, Lesions, Jaundice, Bruising, Other Neurological: No: Weakness, Numbness, Incoordination, Change in speech, Confusion, Seizures, Other Allergies: NO KNOWN ALLERGIES Objective vital signs Vital Sign Date Time Temp Pulse Resp B/P (MAP) Pulse Ox O2 Delivery O2 Flow Rate FiO2 01/31/25 17:23 98.8 78 18 156/78 (104) 100 98.8 01/31/25 08:00 Room Air* 0 21 Total Intake and Output 01/30/25 01/30/25 01/31/25 15:00 23:00 07:00 Intake Total 100 ml 200 ml Balance 100 ml 200 ml medications Current Medications Medications Dose Ordered Sig/Aleja Route Start Time Stop Time Status Last Admin Dose Admin Hydralazine HCl 10 mg Q6HP PRN IV 01/29/25 19:45 Pantoprazole Sodium 40 mg DAILY IV 01/30/25 10:00 01/31/25 09:03 40 MG Furosemide 40 mg DAILY IV 01/30/25 10:00 01/31/25 09:03 40 MG Ondansetron HCl 4 mg Q4HP PRN IV 01/29/25 20:00 Polyethylene Glycol 17 gm DAILYPRN PRN PO 01/30/25 15:45 Sennosides 8.6 mg HS PO 01/30/25 22:00 01/30/25 22:13 8.6 MG Examination General Appearance: the patient is not in distress, alert, oriented X3, Cooperative. HEENT: Atraumatic, PERRLA, EOMI, Mucous membrane moist/pink Respiratory: bilateral mild crackles on the bases. normal lung expansion. Cardiovascular: Chest: Port on right side of the chest for hemodialysis. R egular rate, Normal S1, Normal S2, No murmurs, no chest wall tenderness Abdominal: Normal bowel sounds, Soft, No tenderness, No hepatospenomegaly, No masses : Suprapubic Molina catheter, draining clear urine. Extremities: Left arm fistula. No clubbing, No cyanosis, No edema, Normal pulses, No tenderness/swelling Skin: No rashes, No breakdown, No significant lesion Neuro: Grossly intact cranial nerves Cranial nerves 3-12 NL, Reflexes 2+ Psych/Mental Status: Normal mood. laboratory and microbiology Laboratory Tests 01/31/25 12:05 01/31/25 06:35 Test 01/31/25 06:35 Range/Units Serum Glucose 80 74-106 mg/dL Problem List/Assessment/Plan Problem List/Assessment/Plan # GI bleed: rule out Upper Vs Lower GI bleeding. FOBT positive IV fluid, NS GI consult: Colonoscopy will be performed tomorrow 02/01/25 #End-stage renal disease, dialysis dependent Hemodialysis MWF through port access #Hypertensive heart disease with systolic/diastolic disfunction. Losartan 50mg BID #Anemia of chronic disease Hb:9.4mg/dl Iron Panel Diet: Renal diet/ NPO after midnight for colonoscopy tomorrow. DVT prevention: Patient deambulates Goals of care discussed with the patient > 35 min. Discussed plan of care with Dr. Calhoun Code status: Full code PCP: Maru Watkins Plan discussed with: Patient, the patient agrees with the plan. Plan discussed with: Patient My Orders My Orders Orders - FITO KRISHNAMURTHY Procedure Category Date Status Time Electrocardigram EKG 01/31/25 Logged 08:21 Chest Xray 1 View XY 01/31/25 Resulted 15:42 PTPTT LAB 02/01/25 Verified 04:00 Urinalysis LAB 01/31/25 In Process 15:42 Date of Service: Jan 31, 2025 Billing Provider: FITO KRISHNAMURTHY Common Visit Codes: [id number] INP/OBS CARE(HIGH) FITO KRISHNAMURTHY Jan 31, 2025 19:14
--- NOTE | 2025-01-31 20:30 | DVHPN2 ---
Progress Note - Dictate Date Seen: Jan 31, 2025 Has the PT tested + for MRSA If YES, has PT been informed?: No Medical Necessity Reason Pt with a Central, PICC or Fol: No Subjective No new complaints Pt was started on bowel prep vital signs Vital Sign Date Time Temp Pulse Resp B/P (MAP) Pulse Ox O2 Delivery O2 Flow Rate FiO2 01/31/25 17:23 98.8 78 18 156/78 (104) 100 98.8 01/31/25 08:00 Room Air* 0 21 Total Intake and Output 01/30/25 01/30/25 01/31/25 15:00 23:00 07:00 Intake Total 100 ml 200 ml Balance 100 ml 200 ml medications Current Medications Medications Dose Ordered Sig/Aleja Route Start Time Stop Time Status Last Admin Dose Admin Hydralazine HCl 10 mg Q6HP PRN IV 01/29/25 19:45 Pantoprazole Sodium 40 mg DAILY IV 01/30/25 10:00 01/31/25 09:03 40 MG Furosemide 40 mg DAILY IV 01/30/25 10:00 01/31/25 09:03 40 MG Ondansetron HCl 4 mg Q4HP PRN IV 01/29/25 20:00 Polyethylene Glycol 17 gm DAILYPRN PRN PO 01/30/25 15:45 Sennosides 8.6 mg HS PO 01/30/25 22:00 01/30/25 22:13 8.6 MG objective Gen: 69-year-old male in no apparent distress. Skin: Warm, dry, normal color and texture, no rash. HEENT: Normocephalic atraumatic, mucous membranes moist and pink. Neck: Cervical and supraclavicular nodes normal without enlargement, trachea is midline, thyroid gland is normal without masses. Pulmonary: Clear to auscultation and percussion bilaterally. Cardiac: Regular rate and rhythm. No murmur Abdomen: Soft, nontender, nondistended, bowel sounds present all 4 quadrants, no guarding, no rigidity, no organomegaly. Extremities: No cyanosis, clubbing, no edema Neuro: Cranial nerves II through XII grossly intact, normal affect and speech, no focal motor deficits. laboratory and microbiology Laboratory Tests 01/31/25 12:05 01/31/25 06:35 Test 01/31/25 06:35 Range/Units Serum Glucose 80 74-106 mg/dL Problems(with codes): (1) End-stage renal disease (ESRD) (2) Lower GI bleed (3) Anemia (4) Dialysis patient (5) Acute abdominal pain Prognosis PLAN Complete bowel prep Patient is scheduled for colonoscopy tomorrow We will discuss with dialysis nurse about the timing of dialysis tomorrow Plan discussed with: Other (Nurse) MARK SANCHES MD Jan 31, 2025 20:30
[2025-02-01] VITALS (8 sets, daily range): BP systolic 119–140; BP diastolic 57–80; PULSE 67–79; RESP 16–20; TEMP 97.5–99; O2SAT 96–100
[2025-02-01] MEDS: MAGNESIUM CITRATE SOLUTION 300 ML BTL PO ONE (05:14)
[2025-02-01] MEDS: GOLYTELY 4L KIT PO ONE (05:14)
[2025-02-01] MEDS ORDERED: SODIUM CHL 0.9% 1000 ML BAG XX ONE (07:00)
--- NOTE | 2025-02-01 07:07 | ECG ---
[facility] Test Date: 2025-01-31 Test Time: 22:09:23 Pat Name: JASON ACOSTA Department: Respiratoy Room: 0219 A Gender: M Sand Technologist: HARRY : 1955 Requested By: FITO KRISHNAMURTHY Order Number: [id number] Reading MD: Aram Caballero Measurements Intervals [place] Rate: 69 P: 52 OK: 153 QRS: -40 QRSD: 86 T: 41 QT: 379 QTc: 406 Interpretive Statements Sinus rhythm Left anterior fascicular block Borderline low voltage, extremity leads Electronically Signed On 02-04-2025 15:27:59 PDT by Aram Caballero Please click the below link to view image of tracing.
[2025-02-01 07:09] LABS: Anion Gap 16 (5-15); Carbon Dioxide 25 mmol/L (20-31); Potassium 4.7 mmol/L (3.5-5.1); Sodium 138 mmol/L (136-145)
[2025-02-01 07:11] LABS: Calcium 9.7 mg/dL (8.7-10.4)
[2025-02-01 07:13] LABS: Chloride 97 mmol/L (98-107)
[2025-02-01 07:15] LABS: BUN/Creatinine Ratio 3.5 (10.0-20.0); Glucose 77 mg/dL (74-106)
[2025-02-01 07:17] LABS: INR 1.05 (0.9-1.15); Partial Thromboplastin Time 24.1 SEC (24.5-34.5); Prothrombin Time 11.1 sec (9.3-11.8)
[2025-02-01 07:19] LABS: Hematocrit 32.3 % (41.0-53.0); Hemoglobin 10.8 g/dL (13.5-17.5); Mean Corpuscular Hemoglobin 29.6 pg (28.0-32.0); Mean Corpuscular Volume 88.9 fL (80.0-100.0)
[2025-02-01 07:38] LABS: Blood Urea Nitrogen 39 mg/dL (9-23)
[2025-02-01 07:43] LABS: Total Cells Counted 100.0 (100)
[2025-02-01] MEDS ORDERED: fentaNYL CITRATE 100 MCG/2 ML VL ONE (12:26)
[2025-02-01] MEDS ORDERED: MIDAZOLAM HCL 2MG/2ML 2ml VIAL (1mg/ml) ONE (12:27)
[2025-02-01] MEDS ORDERED: PROPOFOL 10 MG/ML 20 ML IV ONE (12:36)
--- NOTE | 2025-02-01 13:05 | DVHPN2 ---
Progress Note Date Seen: Feb 01, 2025 Has the PT tested + for MRSA If YES, has PT been informed?: No Medical Necessity Reason Pt with a Central, PICC or Fol: No Subjective Patient reports: Other Review of Systems: Deferred Objective vital signs Vital Sign Date Time Temp Pulse Resp B/P (MAP) Pulse Ox O2 Delivery O2 Flow Rate FiO2 02/01/25 10:00 134/80 02/01/25 09:00 97.8 69 16 98 97.8 01/31/25 20:00 Room Air* 0 21 Total Intake and Output 01/31/25 01/31/25 02/01/25 15:00 23:00 07:00 Intake Total 1276 ml 900 ml Balance 1276 ml 900 ml medications Current Medications Medications Dose Ordered Sig/Aleja Route Start Time Stop Time Status Last Admin Dose Admin Hydralazine HCl 10 mg Q6HP PRN IV 01/29/25 19:45 Pantoprazole Sodium 40 mg DAILY IV 01/30/25 10:00 02/01/25 10:23 40 MG Furosemide 40 mg DAILY IV 01/30/25 10:00 01/31/25 09:03 40 MG Ondansetron HCl 4 mg Q4HP PRN IV 01/29/25 20:00 Polyethylene Glycol 17 gm DAILYPRN PRN PO 01/30/25 15:45 Sennosides 8.6 mg HS PO 01/30/25 22:00 01/30/25 22:13 8.6 MG laboratory and microbiology Laboratory Tests 02/01/25 05:23 Test 02/01/25 05:23 Range/Units Serum Glucose 77 74-106 mg/dL Problem List/Assessment/Plan Problem List/Assessment/Plan End-stage renal disease on hemodialysis HTN Anemia due to gastrointestinal bleeding recs Renal diet to be resumed when cleared by Gastroenterology Avoid heparin during dialysis Avoid hypotension Rest of care as per primary medical team HD terminated early as machine stopped working Plan discussed with: Patient SHIRA MALAVE MD Feb 01, 2025 13:05
--- NOTE | 2025-02-01 13:27 | DVHOP2 ---
Operative Report DATE OF OPERATION: 02/01/25 PROCEDURE: Colonoscopy with hot snare polypectomy. PREOPERATIVE INDICATION: The patient is a 69 -year-old male undergoing colonoscopy for evaluation of rectal bleeding POSTOPERATIVE DIAGNOSES: 1. 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 There were two 1.5-2 cm benign-appearing descending colon polyps that were seen and removed by hot snare polypectomy 3. There were about 4-5 less than 1 cm benign-appearing transverse colon polyps that were seen and removed via hot snare polypectomy 4. There was a 1 cm benign-appearing cecal polyp that was seen and removed by hot snare polypectomy however the specimen could not be retrieved PROCEDURE PERFORMED BY: Mark Britton M.D. SCOPE: Olympus videocolonoscope. ASA CLASS: 3 PREOPERATIVE MEDICATIONS: Dr. Deon Walker PROCEDURE IN DETAIL: After obtaining an informed consent, the patient was placed on left lateral decubitus position. He was then sedated with the above medications. A rectal examination was performed that was normal. The colonoscope was then passed through the anus into the rectosigmoid and through the descending, transverse, and ascending colon up to the cecum with visualization of the appendiceal orifice, base of the cecum and the ileocecal valve. The colonoscope was then withdrawn. There was a 1 cm polyp that was seen in the base of the cecum and removed via hot snare polypectomy The specimen could not be retrieved.Patient had multiple less than 1 cm benign- appearing transverse colon polyps that were seen and removed via hot snare polypectomy and the specimens were retrieved Patient had two larger 1.5-2 cm benign-appearing descending colon polyps that were seen and removed by hot snare polypectomy and had been retrieved earlier as the colonoscope had been advanced On retroflexion and straight on view he had trace internal hemorrhoids. Patient had moderate radiation induced proctitis with hyperemia erythema telangiectasias of the distal rectum This was the likely source of the GI bleeding as the area was oozing. Biopsies were obtained. The colonoscope was then withdrawn The patient tolerated the procedure well without difficulty. WITHDRAWAL TIME: 15 minutes QUALITY OF THE PREP: [place] Bowel Prep score: 9. COMPLICATIONS : None SPECIMENS: Descending colon polyps Transverse colon polyps Rectal biopsies DISPOSITION: Transfer back to the floor D/C to home PLAN: 1. Repeat colonoscopy based on biopsy result likely in 2-3 years 2. Local anorectal care with consideration for [place] suppositories or cortisone suppositories if rectal bleeding persists 3. Resume clear liquid diet advance to full liquid and then soft mechanical 4. 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 Follow up in my office after discharge in 2-4 weeks for ongoing GI management MARK BRITTON MD Feb 01, 2025 13:27
--- NOTE | 2025-02-01 14:10 | DVHPNRES ---
Progress Note Date Seen: Feb 01, 2025 Resident Creating Document: FITO KRISHNAMURTHY RESIDENT Has the PT tested + for MRSA If YES, has PT been informed?: No Medical Necessity Reason Pt with a Central, PICC or Fol: No Subjective Review of Systems Mandi Lopez is a 69-year-old male, with past medical history of CKD Stage V (On hemodialysis MWF) and hypertension. The patient came to the ED with chief complain of 2 weeks of noticing blood in the stools, the blood is bright red, that is intermittent, patient related with BP medication Losartan 50mg bid. Associated with general weakness and fatigue. The patient denies abdominal pain, constipation, diarrhea, fever, chills, dizziness. The patient reports he is no taking oral blood thinners. Today, the patient reports that the symptoms persisted, this prompted his visit to the ED. In the ED Hb: 10.1mg/dl, BP: 158/87mmhg, and the FOBT was positive. On past medical history: Hypertension, end-stage renal disease. Past Surgical History. Dialysis access. He is do not uses alcohol, smokes or drugs. On admission course: The patient was evaluated and examined by bedside on 01/30/25; the patient reports feeling well, no new complaints. VS: BP 113/72mmg, HR: 64bpm. Labs: Hb: 9.4mg/dl. GI is on board, they will perform colonoscopy on 02/01/2025. We will continue monitoring this patient. On, 01/31/25, the patient was re-evaluated and examined at the bedside, reports feeling well, VS, labs showed anemia Hb: 9.4mg/dl. The patient received hemodialysis yesterday. GI on board, colonoscopy will be performed tomorrow. On 02/01/25, the patient was re-evaluated and examined today. VS, labs and chart was reviewed. The patient reports feeling well, no new complaints. The patient denies BM with bloody stools. The patient will go to colonoscopy today, and after that she will received dialysis. We will continue following this patient. ROS: Constitutional: No: Fever, Chills, Sweats, Weakness, Malaise, Other Eyes: No: Pain, Vision change, Conjunctivae inflammation, Eyelid inflammation, Other, Redness ENT: No: Ear pain, Ear discharge, Nose pain, Nose discharge, Nose congestion, Mouth pain, Mouth swelling, Throat pain, Throat swelling, Other Respiratory: No: Cough, Dry, SOB with excertion, Wheezing, Hemoptysis, Pleuritic Pain, Sputum, Wheezing, Other Cardiovascular: No: Palpitations, Orthopnea, Paroxysmal Noc. Dyspnea, Edema, Lt Headedness, Other Gastrointestinal: No: Nausea, Vomiting, Abdominal Pain, Diarrhea, Constipation, Melena, Hematochezia, Other Genitourinary: No Dysuria, No Frequency, No Incontinence, No Hematuria, No Retention, No Other Musculoskeletal: No: other, neck pain, shoulder pain, arm pain, back pain, hand pain, leg pain, foot pain Skin: No: Rash, Lesions, Jaundice, Bruising, Other Neurological: No: Weakness, Numbness, Incoordination, Change in speech, Confusion, Seizures, Other Allergies: NO KNOWN ALLERGIES Objective vital signs Vital Sign Date Time Temp Pulse Resp B/P (MAP) Pulse Ox O2 Delivery O2 Flow Rate FiO2 02/01/25 13:40 98 02/01/25 13:40 97.6 78 16 121/70 (87) 97.6 02/01/25 13:05 Room Air 0 100 Total Intake and Output 01/31/25 01/31/25 02/01/25 15:00 23:00 07:00 Intake Total 1276 ml 900 ml Balance 1276 ml 900 ml medications Current Medications Medications Dose Ordered Sig/Aleja Route Start Time Stop Time Status Last Admin Dose Admin Hydralazine HCl 10 mg Q6HP PRN IV 01/29/25 19:45 Pantoprazole Sodium 40 mg DAILY IV 01/30/25 10:00 02/01/25 10:23 40 MG Furosemide 40 mg DAILY IV 01/30/25 10:00 01/31/25 09:03 40 MG Ondansetron HCl 4 mg Q4HP PRN IV 01/29/25 20:00 Polyethylene Glycol 17 gm DAILYPRN PRN PO 01/30/25 15:45 Sennosides 8.6 mg HS PO 01/30/25 22:00 01/30/25 22:13 8.6 MG Examination General Appearance: the patient is not in distress, alert, oriented X3, Cooperative. HEENT: Atraumatic, PERRLA, EOMI, Mucous membrane moist/pink Respiratory: bilateral mild crackles on the bases. normal lung expansion. Cardiovascular: Chest: Port on right side of the chest for hemodialysis. R egular rate, Normal S1, Normal S2, No murmurs, no chest wall tenderness Abdominal: Normal bowel sounds, Soft, No tenderness, No hepatospenomegaly, No masses : Suprapubic Molina catheter, draining clear urine. Extremities: Left arm fistula. No clubbing, No cyanosis, No edema, Normal pulses, No tenderness/swelling Skin: No rashes, No breakdown, No significant lesion Neuro: Grossly intact cranial nerves Cranial nerves 3-12 NL, Reflexes 2+ Psych/Mental Status: Normal mood. laboratory and microbiology Laboratory Tests 02/01/25 05:23 Test 02/01/25 05:23 Range/Units Serum Glucose 77 74-106 mg/dL Problem List/Assessment/Plan Problem List/Assessment/Plan # GI bleed: rule out Upper Vs Lower GI bleeding. FOBT positive IV fluid, NS GI consult: Colonoscopy will be performed today 02/01/25. #End-stage renal disease, dialysis dependent (MWF) Hemodialysis MWF through port access. Dialysis after procedure. #Hypertensive heart disease with systolic/diastolic disfunction. Losartan 50mg BID #Anemia of chronic disease Hb:10.8mg/dl Epoyetin SC 10,000 U once Diet: Clear liquids after procedure, if tolerated proceed to full liquids DVT prevention: Patient deambulates Goals of care discussed with the patient > 35 min. Discussed plan of care with Dr. Schafer Code status: Full code PCP: Maru Watkins Plan discussed with: Patient, the patient agrees with the plan. Plan discussed with: Patient My Orders My Orders Orders - FITO KRISHNAMURTHY Procedure Category Date Status Time Chest Xray 1 View XY 01/31/25 Resulted 15:42 Basic Metabolic Panel LAB 02/02/25 Verified 04:00 Date of Service: Feb 01, 2025 Billing Provider: GIOVANA SCHAFER MD Common Visit Codes: [id number] INP/OBS CARE(HIGH) Date of Service: Feb 01, 2025 Billing Provider: GIOVANA SCHAFER MD Common Visit Codes: [id number] INP/OBS CARE(HIGH) FITO KRISHNAMURTHY Feb 01, 2025 14:10 GIOVANA SCHAFER MD Feb 01, 2025 21:59
[2025-02-01] MEDS ORDERED: EPOETIN ALFA-EPBX 10,000 UNIT/1ML VIAL SC ONE (21:00)
[2025-02-02 01:00] VITALS: BP 112/67; PULSE 71; RESP 18; TEMP 99; O2SAT 98
[2025-02-02 05:00] VITALS: BP 106/64; PULSE 76; RESP 20; TEMP 98.2; O2SAT 100
[2025-02-02 06:45] LABS: Hematocrit 27.9 % (41.0-53.0); Hemoglobin 9.3 g/dL (13.5-17.5); Mean Corpuscular Hemoglobin 29.6 pg (28.0-32.0); Mean Corpuscular Volume 89.0 fL (80.0-100.0); Nucleated Red Blood Cells % 0.1 %
[2025-02-02 07:01] LABS: Anion Gap 14 (5-15); Carbon Dioxide 24 mmol/L (20-31); Chloride 103 mmol/L (98-107); Potassium 5.0 mmol/L (3.5-5.1); Sodium 141 mmol/L (136-145)
[2025-02-02 07:03] LABS: Calcium 8.9 mg/dL (8.7-10.4)
[2025-02-02 07:08] LABS: BUN/Creatinine Ratio 2.8 (10.0-20.0); Glucose 80 mg/dL (74-106)
[2025-02-02 07:12] LABS: Blood Urea Nitrogen 36 mg/dL (9-23)
[2025-02-02 08:00] VITALS: O2SAT 96
[2025-02-02 08:45] VITALS: BP 122/71; PULSE 61; RESP 18; TEMP 97.7; O2SAT 96
[2025-02-02] MEDS: SODIUM CHL 0.9% 1000 ML BAG XX ONE (10:30)
[2025-02-02] MEDS ORDERED: ALBUMIN 25% 100 ML IV PRN (10:45)
--- NOTE | 2025-02-02 11:10 | DVHPNRES ---
Progress Note Date Seen: Feb 02, 2025 Resident Creating Document: ARIANNE ZAPATA RESIDENT Has the PT tested + for MRSA If YES, has PT been informed?: No Medical Necessity Reason Pt with a Central, PICC or Fol: No Subjective Review of Systems Mandi Lopez is a 69-year-old male, with past medical history of CKD Stage V (On hemodialysis MWF) and hypertension. The patient came to the ED with chief complain of 2 weeks of noticing blood in the stools, the blood is bright red, that is intermittent, patient related with BP medication Losartan 50mg bid. Associated with general weakness and fatigue. The patient denies abdominal pain, constipation, diarrhea, fever, chills, dizziness. The patient reports he is no taking oral blood thinners Objective vital signs Vital Sign Date Time Temp Pulse Resp B/P (MAP) Pulse Ox O2 Delivery O2 Flow Rate FiO2 02/02/25 08:45 97.7 61 18 122/71 (88) 96 97.7 02/02/25 08:00 Room Air* 0 21 Total Intake and Output 02/01/25 02/01/25 02/02/25 15:00 23:00 07:00 Intake Total 100 ml 780 ml 600 ml Output Total 200 ml Balance 100 ml 580 ml 600 ml medications Current Medications Medications Dose Ordered Sig/Aleja Route Start Time Stop Time Status Last Admin Dose Admin Hydralazine HCl 10 mg Q6HP PRN IV 01/29/25 19:45 Pantoprazole Sodium 40 mg DAILY IV 01/30/25 10:00 02/01/25 10:23 40 MG Furosemide 40 mg DAILY IV 01/30/25 10:00 01/31/25 09:03 40 MG Ondansetron HCl 4 mg Q4HP PRN IV 01/29/25 20:00 Polyethylene Glycol 17 gm DAILYPRN PRN PO 01/30/25 15:45 Sennosides 8.6 mg HS PO 01/30/25 22:00 02/01/25 21:29 8.6 MG Albumin Human 100 ml @ 100 mls/hr Q15MP PRN IV 02/02/25 10:45 02/04/25 10:59 Examination General Appearance: the patient is not in distress, alert, oriented X3, Cooperative. HEENT: Atraumatic, PERRLA, EOMI, Mucous membrane moist/pink Respiratory: bilateral mild crackles on the bases. normal lung expansion. Cardiovascular: Chest: Port on right side of the chest for hemodialysis. R egular rate, Normal S1, Normal S2, No murmurs, no chest wall tenderness Abdominal: Normal bowel sounds, Soft, No tenderness, No hepatospenomegaly, No masses : Suprapubic Molina catheter, draining clear urine. Extremities: Left arm fistula. No clubbing, No cyanosis, No edema, Normal pulses, No tenderness/swelling Skin: No rashes, No breakdown, No significant lesion Neuro: Grossly intact cranial nerves Cranial nerves 3-12 NL, Reflexes 2+ Psych/Mental Status: Normal mood laboratory and microbiology Laboratory Tests 02/02/25 05:30 Test 02/02/25 05:30 Range/Units Serum Glucose 80 74-106 mg/dL Problem List/Assessment/Plan Problem List/Assessment/Plan Problem List/Assessment/Plan # GI bleed: rule out Upper Vs Lower GI bleeding. FOBT positive IV fluid, NS GI consult: Colonoscopy will be performed today 02/01/25. #End-stage renal disease, dialysis dependent (MWF) Hemodialysis MWF through port access. Dialysis after procedure. #Hypertensive heart disease with systolic/diastolic disfunction. Losartan 50mg BID #Anemia of chronic disease Hb:10.8mg/dl Epoyetin SC 10,000 U once Diet: Clear liquids after procedure, if tolerated proceed to full liquids DVT prevention: Patient deambulates Goals of care discussed with the patient > 35 min. Discussed plan of care with Dr. Talbot My Orders My Orders Orders - ARIANNE ZAPATA Procedure Category Date Status Time Full Liq Diet DIET 02/02/25 Transmitted Breakfast Dietary Evaluation Review Comments: 1) Advance to renal cardiac diet when medically feasible 2) Encourage optimal PO intake 3) Follow-up with gastroenterology and nephrology 4) Continue to monitor I&O, labs, and skin integrity Expected Outcomes/Goals: 1) appetite and labs to improve 2) diet to advance 3) gradual wt loss 4) f/u in 3-5 days ARIANNE ZAPATA Feb 02, 2025 11:10
[2025-02-02] MEDS ORDERED: [UNRECOGNIZED DRUG - CODE] PR (11:36)
--- NOTE | 2025-02-02 11:41 | DVHDSRES ---
Discharge Summary Date of Admission Resident Creating Document: ARIANNE ZAPATA RESIDENT Jan 29, 2025 at 19:46 Date of Discharge: Feb 02, 2025 Admitting Diagnosis GI bleeding ESRD on hemodialysis Wounds: No open wound was present Labs/Diagnostic Data: Laboratory Results Test 02/02/25 05:30 02/01/25 05:23 01/31/25 18:45 01/31/25 09:07 White Blood Count 6.2 10^3/uL (4.4-10.8) Red Blood Count 3.13 10^6/uL (4.5-5.90) Hemoglobin 9.3 g/dL (13.5-17.5) Hematocrit 27.9 % (41.0-53.0) Mean Corpuscular Volume 89.0 fL (80.0-100.0) Mean Corpuscular Hemoglobin 29.6 pg (28.0-32.0) Mean Corpuscular Hemoglobin Concent 33.2 g/dL (32.0-36.0) Red Cell Distribution Width 15.6 % (11.8-14.3) Platelet Count 149 10^3/uL (140-450) Mean Platelet Volume 9.7 fL (6.9-10.8) Neutrophils (%) (Auto) 59.7 % (37.0-80.0) Lymphocytes (%) (Auto) 20.5 % (10.0-50.0) Monocytes (%) (Auto) 10.5 % (0.0-12.0) Eosinophils (%) (Auto) 8.7 % (0.0-7.0) Basophils (%) (Auto) 0.6 % (0.0-2.0) Neutrophils # (Auto) 3.7 10 ^3/uL (1.6-8.6) Lymphocytes # (Auto) 1.3 10 ^3/uL (0.4-5.4) Monocytes # (Auto) 0.7 10 ^3/uL (0-1.3) Eosinophils # (Auto) 0.5 10 ^3/uL (0-0.8) Basophils # (Auto) 0 10 ^3/uL (0-0.2) Nucleated Red Blood Cells 0.1 % Sodium Level 141 mmol/L (136-145) Potassium Level 5.0 mmol/L (3.5-5.1) Chloride Level 103 mmol/L (98-107) Carbon Dioxide Level 24 mmol/L (20-31) Anion Gap 14 (5-15) Blood Urea Nitrogen 36 mg/dL (9-23) Creatinine 12.81 mg/dL (0.700-1.30) Glomerular Filtration Rate Calc 4 mL/min (>90) BUN/Creatinine Ratio 2.8 (10.0-20.0) Serum Glucose 80 mg/dL (74-106) Calcium Level 8.9 mg/dL (8.7-10.4) Differential Total Cells Counted 100.0 (100) Neutrophils % (Manual) 38 (37.0-80.0) Band Neutrophils % (Manual) 2 Lymphocytes % (Manual) 40 (10.0-50.0) Monocytes % (Manual) 5 (0-12) Eosinophils % (Manual) 15 (0-7) Basophils % (Manual) 0 (0.0-2.0) Metamyelocytes % (manual) 0 Myelocytes % (Manual) 0 Promyelocytes % (Manual) 0 Blast Cells % (Manual) 0 Reactive Lymphocytes 0 Platelet Estimate Adequate Prothrombin Time 11.1 sec (9.3-11.8) Prothrombin Time INR 1.05 (0.9-1.15) Activated Partial Thromboplast Time 24.1 SEC (24.5-34.5) Urine Color Colorless (Yellow) Urine Clarity Clear (Clear) Urine pH 8.0 (5.0-9.0) Urine Specific [place] 1.004 (1.001-1.035) Urine Protein 1+ (Negative) Urine Ketones Negative (Negative) Urine Blood Trace /uL (Negative) Urine Nitrite Negative (Negative) Urine Bilirubin Negative (Negative) Urine Urobilinogen Normal mg/dL (Negative) Urine Leukocyte Esterase 3+ /uL (Negative) Urine RBC 2 /hpf (0 - 3) Urine Microscopic WBC 3 /HPF (0-3) Urine Squamous Epithelial Cells Few /hpf (<5) Urine Bacteria Few /hpf (None Seen) Urine Mucus Few (None Seen) Urine Glucose Normal mg/dL (Normal) POC Glucose 182 mg/dl (70-106) Test 01/31/25 06:35 01/30/25 05:18 01/29/25 16:10 01/29/25 08:08 Schistocytes Few Magnesium Level 2.3 mg/dL (1.6-2.6) Poikilocytosis (manual) Slight Spherocytes Few [place] Cells Iron Level 44 ug/dL (65-175) Total Iron Binding Capacity 194 ug/dL (250-425) Percent Iron Saturation 22.7 % (20-55) Ferritin 462.9 ng/mL (22-322) Hepatitis A IgM Antibody Negative Hepatitis B Surface Antigen Negative (Negative) Hepatitis B Core IgM Antibody Negative (Negative) Hepatitis C Antibody Negative (Negative) Large Platelets Few Stool Occult Blood Positive (Negative) Stool Occult Blood Sample #3 (Negative) Other Laboratory Tests 02/02/25 05:30 Brief Hx & Hospital Course: Mandi Lopez is a 69-year-old male, with past medical history of CKD Stage V (On hemodialysis MWF) and hypertension. The patient came to the ED with chief complain of 2 weeks of noticing blood in the stools, the blood is bright red, that is intermittent, patient related with BP medication Losartan 50mg bid. Associated with general weakness and fatigue. The patient denies abdominal pain, constipation, diarrhea, fever, chills, dizziness. The patient reports he is no taking oral blood thinners. Today, the patient reports that the symptoms persisted, this prompted his visit to the ED. Hospital course: Initial CT abdomen pelvis without contrast demonstrated normal study. 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 Post colonoscopy period was uneventful. Continued inpatient hemodialysis during the hospital stay. Today during morning round the patient mentioned feeling better, no bloody bowel movement, discharge plan was discussed with the patient and all questions were answered with the patient and the niece. The patient is being discharged to home after dialysis with mesalamine per rectal suppository PRN for rectal bleeding and advised to follow up with discharge clinic on 02/04/25, follow up with the GI in 2-4 weeks to discuss biopsy results and further GI management and also advised to continue hemodialysis as scheduled before. Physical Examination General Appearance:Patient is alert, oriented X3, Cooperative. HEENT: Atraumatic, PERRLA, EOMI, Mucous membrane moist/pink Respiratory: bilateral mild crackles on the bases. normal lung expansion. Cardiovascular: Chest: Port on right side of the chest for hemodialysis. R egular rate, Normal S1, Normal S2, No murmurs, no chest wall tenderness Abdominal: Normal bowel sounds, Soft, No tenderness, No hepatospenomegaly, No masses : Suprapubic Molina catheter, draining clear urine. Extremities: Left arm fistula. No clubbing, No cyanosis, No edema, Normal pulses, No tenderness/swelling Skin: No rashes, No breakdown, No significant lesion Neuro: Grossly intact cranial nerves Cranial nerves 3-12 NL, Reflexes 2+ Psych/Mental Status: Normal mood. Consults/Reason for consult GI and Nephrology were consulted Operations or Procedures COMPARISON: CT CT AB PEL WO CON-NO ORAL OR IV on DOS: 10/27/22 FINDINGS: Abdomen/Pelvis: The spleen, pancreas, liver, gallbladder, adrenal glands, and right kidney are grossly unremarkable. Hypodense left renal lesions are incompletely characterized due to lack of IV contrast. The prostate gland is significantly enlarged, measuring 6.3 cm in transverse diameter. The bladder is decompressed by a suprapubic Molina catheter. The abdominal aorta is normal in course and caliber. There are minimal atherosclerotic calcifications. There is no free intraperitoneal air or fluid. There is no enlarged abdominal pelvic lymph node. There is no bowel wall thickening or dilatation. The appendix is normal. Other: The imaged lower thorax demonstrates right coronary artery calcifications. There are bilateral lower lung atelectasis and/or scar. No acute osseous abnormality is evident. Impression: No acute noncontrast CT abnormality in the abdomen or pelvis. Significant prostatomegaly. Suprapubic Molina catheter. Right coronary artery calcifications. PROCEDURE: Colonoscopy with hot snare polypectomy. PREOPERATIVE INDICATION: The patient is a 69 -year-old male undergoing colonoscopy for evaluation of rectal bleeding POSTOPERATIVE DIAGNOSES: 1. 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 There were two 1.5-2 cm benign-appearing descending colon polyps that were seen and removed by hot snare polypectomy 3. There were about 4-5 less than 1 cm benign-appearing transverse colon polyps that were seen and removed via hot snare polypectomy 4. There was a 1 cm benign-appearing cecal polyp that was seen and removed by hot snare polypectomy however the specimen could not be retrieved PROCEDURE PERFORMED BY: Iman Britton M.D. SCOPE: Olympus videocolonoscope. ASA CLASS: 3 PREOPERATIVE MEDICATIONS: Dr. Deon Walker PROCEDURE IN DETAIL: After obtaining an informed consent, the patient was placed on left lateral decubitus position. He was then sedated with the above medications. A rectal examination was performed that was normal. The colonoscope was then passed through the anus into the rectosigmoid and through the descending, transverse, and ascending colon up to the cecum with visualization of the appendiceal orifice, base of the cecum and the ileocecal valve. The colonoscope was then withdrawn. There was a 1 cm polyp that was seen in the base of the cecum and removed via hot snare polypectomy The specimen could not be retrieved.Patient had multiple less than 1 cm benign- appearing transverse colon polyps that were seen and removed via hot snare polypectomy and the specimens were retrieved Patient had two larger 1.5-2 cm benign-appearing descending colon polyps that were seen and removed by hot snare polypectomy and had been retrieved earlier as the colonoscope had been advanced On retroflexion and straight on view he had trace internal hemorrhoids. Patient had moderate radiation induced proctitis with hyperemia erythema telangiectasias of the distal rectum This was the likely source of the GI bleeding as the area was oozing. Biopsies were obtained. The colonoscope was then withdrawn The patient tolerated the procedure well without difficulty. WITHDRAWAL TIME: 15 minutes QUALITY OF THE PREP: [place] Bowel Prep score: 9. COMPLICATIONS : None SPECIMENS: Descending colon polyps Transverse colon polyps Rectal biopsies DISPOSITION: Transfer back to the floor D/C to home PLAN: 1. Repeat colonoscopy based on biopsy result likely in 2-3 years 2. Local anorectal care with consideration for Rowasa suppositories or cortisone suppositories if rectal bleeding persists 3. Resume clear liquid diet advance to full liquid and then soft mechanical 4. 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 Follow up in my office after discharge in 2-4 weeks for ongoing GI management Condition at Discharge: Guarded Final Diagnosis/Problems List Possible lower GI bleeding secondary to radiation proctitis, status post colonoscopy ESRD on hemodialysis Anaemia of chronic Disease Hypertensive heart disease with possible chronic diastolic heart failure Discharge Disposition: Home Discharge Instruct/Medications Diet: Renal Activity: No Restrictions, As Tolerated Follow Up/Referral: F/U with DC clinic on Tuesday morning ( 02/04/25) F/U with GI in 2 to 4 weeks to discuss biopsy reports. Medications: Mesalamine rectal suppository daily PRN if rectal bleeding Scheduled B-Complex W/ [id number] & (Renatabs), 1 OR DAILY, (Reported) Losartan Potassium (Losartan Potassium), 50 MG PO DAILY, (Reported) Scheduled PRN Mesalamine (Rowasa), 4 GM [place] DAILY PRN Discharge Statement: "Patient was advised to return to the ER or call 911 if any headaches, dizziness, shortness of breath, chest pain, abdominal pain, bleeding, fevers, or worsening of medical condition. Patient was counseled about treatment plan, medications, possible side effects, patientverbalized understanding. All questions were answered to the best of my ability. This discharge took greater then 30 minutes in planning, reviewing documentation, counseling the patient, and discussing with other team members." ASSESSMENT ASSESSMENT Assessment Possible lower GI bleeding ESRD on hemodialysis Date of Service: Feb 02, 2025 Billing Provider: GIOVANA SCHAFER MD Common Visit Codes: 12916-KXK/OBS DISCH DAY >30min ARIANNE ZAPATA RESIDENT Feb 02, 2025 11:41 GIOVANA SCHAFER MD Feb 02, 2025 22:50
[2025-02-02 13:00] VITALS: BP 129/75; PULSE 65; RESP 18; TEMP 97.5; O2SAT 99
[2025-02-02 14:23] VITALS: BP 134/80; TEMP 36.4
--- NOTE | 2025-02-02 14:30 | DVHPN2 ---
Progress Note Date Seen: Feb 02, 2025 Has the PT tested + for MRSA If YES, has PT been informed?: No Medical Necessity Reason Pt with a Central, PICC or Fol: No Subjective Patient reports: No new complaints Objective vital signs Vital Sign Date Time Temp Pulse Resp B/P (MAP) Pulse Ox O2 Delivery O2 Flow Rate FiO2 02/02/25 14:23 36.4 02/02/25 13:00 65 18 129/75 (93) 99 02/02/25 08:00 Room Air* 0 21 Total Intake and Output 02/01/25 02/01/25 02/02/25 15:00 23:00 07:00 Intake Total 100 ml 780 ml 600 ml Output Total 200 ml Balance 100 ml 580 ml 600 ml medications Current Medications Medications Dose Ordered Sig/Aleja Route Start Time Stop Time Status Last Admin Dose Admin Hydralazine HCl 10 mg Q6HP PRN IV 01/29/25 19:45 Pantoprazole Sodium 40 mg DAILY IV 01/30/25 10:00 02/02/25 11:24 40 MG Furosemide 40 mg DAILY IV 01/30/25 10:00 01/31/25 09:03 40 MG Ondansetron HCl 4 mg Q4HP PRN IV 01/29/25 20:00 Polyethylene Glycol 17 gm DAILYPRN PRN PO 01/30/25 15:45 Sennosides 8.6 mg HS PO 01/30/25 22:00 02/01/25 21:29 8.6 MG Albumin Human 100 ml @ 100 mls/hr Q15MP PRN IV 02/02/25 10:45 02/04/25 10:59 laboratory and microbiology Laboratory Tests 02/02/25 05:30 Test 02/02/25 05:30 Range/Units Serum Glucose 80 74-106 mg/dL Problem List/Assessment/Plan Problem List/Assessment/Plan End-stage renal disease on hemodialysis HTN Anemia due to gastrointestinal bleeding recs HD today Renal diet to be resumed when cleared by Gastroenterology Avoid heparin during dialysis Avoid hypotension Rest of care as per primary medical team Plan discussed with: Patient My Orders My Orders Orders - SHIRA MALAVE MD Procedure Category Date Status Time Epoetin Nabor-Epbx PHA 02/02/25 In Process (Retacrit) 21:00 Albumin 25% (Albutein) PHA 02/02/25 In Process 10:45 Hemodialysis Orders ORDERS 02/02/25 Transmitted 10:47 Dietary Evaluation Review Comments: 1) Advance to renal cardiac diet when medically feasible 2) Encourage optimal PO intake 3) Follow-up with gastroenterology and nephrology 4) Continue to monitor I&O, labs, and skin integrity Expected Outcomes/Goals: 1) appetite and labs to improve 2) diet to advance 3) gradual wt loss 4) f/u in 3-5 days SHIRA MALAVE MD Feb 02, 2025 14:30
[2025-02-02] MEDS ORDERED: EPOETIN ALFA-EPBX 10,000 UNIT/1ML VIAL SC ONE (21:00)
--- NOTE | 2025-02-02 23:20 | DVHPN2 ---
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 Skin: Warm, dry, normal color and texture, no rash. HEENT: Normocephalic atraumatic, mucous membranes moist and pink. Neck: Cervical and supraclavicular nodes normal without enlargement, trachea is midline, thyroid gland is normal without masses. Pulmonary: Clear to auscultation and percussion bilaterally. Cardiac: Regular rate and rhythm. No murmur Abdomen: Soft, nontender, nondistended, bowel sounds present all 4 quadrants, no guarding, no rigidity, no organomegaly. Extremities: No cyanosis, clubbing, no edema Neuro: Cranial nerves II through XII grossly intact, normal affect and speech, no focal motor deficits. laboratory and microbiology Laboratory Tests 02/02/25 05:30 Test 02/02/25 05:30 Range/Units Serum Glucose 80 74-106 mg/dL Problems(with codes): (1) Colon polyps (2) Ulcerative proctitis (3) Dialysis patient (4) End-stage renal disease (ESRD) (5) Lower GI bleed (6) Anemia Dietary Evaluation Review Comments: 1) Advance to renal cardiac diet when medically feasible 2) Encourage optimal PO intake 3) Follow-up with gastroenterology and nephrology 4) Continue to monitor I&O, labs, and skin integrity Expected Outcomes/Goals: 1) appetite and labs to improve 2) diet to advance 3) gradual wt loss 4) f/u in 3-5 days Plan discussed with: Patient, Other (Dialysis nurse) MARK SANCHES MD Feb 02, 2025 23:20
== END 2025-02-02 15:30 | disposition home or self-care (01) | DRG 254 ==
LOC: ER 15:26 → OVERFLOW 19:46 → CENTRAL 01-30 02:37
PROVIDERS: ADMIT Internal Medicine; ATTEND Internal Medicine
PROC: 5A1D70Z Performance of Urinary Filtration, Intermittent, Less than 6 Hours Per Day (ICD-10-PCS; 2025-01-30)
PROC: 0DBM8ZZ Excision of Descending Colon, Via Natural or Artificial Opening Endoscopic (ICD-10-PCS; 2025-02-01)
PROC: 0DBL8ZX Excision of Transverse Colon, Via Natural or Artificial Opening Endoscopic, Diagnostic (ICD-10-PCS; 2025-02-01)
PROC: 0DBP8ZX Excision of Rectum, Via Natural or Artificial Opening Endoscopic, Diagnostic (ICD-10-PCS; principal; 2025-02-01 12:18)
DX: K62.7 Radiation proctitis (principal); N18.6 End stage renal disease; D63.8 Anemia in other chronic diseases classified elsewhere; I13.0 Hypertensive heart and chronic kidney disease with heart failure and stage 1 through stage 4 chronic kidney disease, or unspecified chronic kidney disease; K63.5 Polyp of colon; D50.0 Iron deficiency anemia secondary to blood loss (chronic); I25.10 Atherosclerotic heart disease of native coronary artery without angina pectoris; N40.0 Benign prostatic hyperplasia without lower urinary tract symptoms; N18.9 Chronic kidney disease, unspecified; I50.32 Chronic diastolic (congestive) heart failure; Z99.2 Dependence on renal dialysis; Z86.0100 Personal history of colon polyps, unspecified; Z79.82 Long term (current) use of aspirin; Z79.899 Other long term (current) drug therapy
CPT/HCPCS: 36415; 45384; 71045; 74176; 80048; 80074; 81001; 82270; 82728; 82962; 83540; 83550; 83735; 84132; 85007; 85025; 85027; 85610; 85730; 86850; 86900; 86901; 90935; 93005; G0378; J1642; J1815; J2250; J2470; J2704